=== PATIENT | female | born 1985 | race Caucasian/White ===

== ENCOUNTER 2021-02-17 09:56 | Outpatient (REF) | payer MEDICAID, SELFPAY ==
--- NOTE | 2021-02-17 13:16 | MHC.AU.ANR ---
Adult Audiological Evaluation Date of Visit: 02/17/21 Reason for Appointment: Audiological evaluation due to concern for decreased hearing. Ms. Carbone notes that she has had fluctuating hearing difficulties over the past ten years. She has had an audiological evaluation in the past and reports seeing an ENT physician in [place] and an pick up man. Ms. Carbone reports that she was told that her hearing difficulties were caused by allergies. She notes that her hearing seems worse during allergy seasons, in the spring and fall. She states that she has been treated with allergy shots, but feels it hasn't helped improve her hearing at all. She notes that her right ear is worse and has to direct people to talk to her from the left. She notes that her family gets frustrated when she doesn't hear well and she often has to ask for repetition. 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 Does patient feel they have a hearing loss?: Yes If Yes, Which Ear?: Right Ear When Was Hearing Difficulty First Noticed?: ~10 years ago Has hearing been tested previously?: Yes Previous Hearing Test Results: States that she was tested ~2 years ago at [facility]. Results not available for review today. Hearing Handicap Inventory: HHIE SCORE: 26 Based on HHIE score, patient has: Severe perceived hearing handicap Ear History: Recent Ear Pain: Right Ear Ear Infections in Childhood: Both Ears Bothersome Tinnitus/Ringing/Noises in Ears: Both Ears Medical History: Medical History: Dizziness or Unsteadiness Medical History (Other): Seasonal allergies, allergy shots Otoscopy: Right Ear: Unremarkable Left Ear: Unremarkable Tympanometry: Tympanometry performed due to: History of middle ear dysfunction Right Ear: Negative Middle Ear Pressure (Type C), Reduced Middle Ear Compliance (Type As) Left Ear: Negative Middle Ear Pressure (Type C), Reduced Middle Ear Compliance (Type As) Hearing Evaluation: Transducer(s) Used: Insert Earphones, Bone Conduction Method: Conventional Audiometry Stimuli Used: Pure Tones Right Ear: Description of Hearing: Mild conductive hearing loss 250-500 Hz, rising to normal hearing from 5234-0900 Hz with some underlying conductive components. Air-bone gaps of 40 dBHL at 250 and 500 Hz, 25 dBHL at 1000 Hz, and 20 dBHL at 4000 Hz. Possible Carhart's notch at 2000 Hz. Left Ear: Description of Hearing: Normal hearing from 250-8000 Hz with some underlying conductive components. Air-bone gaps of 25 dBHL at 250 and 500 Hz, 15 dBHL at 1000 Hz, and 20 dBHL at 4000 Hz. Possible Carhart's notch at 2000 Hz. Speech Recognition Threshold (SRT): Method Used: Monitored Live Voice Stimuli Used: Spondee Words Right Ear: 20 dBHL Left Ear: 15 dBHL Word Discrimination: Method: Recorded Lists Word Lists Used: NU-6 Right Ear: 96% at 60 dBHL Left Ear: 96% at 55 dBHL Recommendations: Referral to Ear, Nose, and Throat is recommended given conductive hearing loss, middle-ear dysfunction, and patient's report of perceived severe communication difficulties related to her hearing loss. Hearing re-evaluation recommended in six months. 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
== END 2021-02-17 09:57 | disposition home or self-care (01) ==
LOC: HO.SH 09:56
PROVIDERS: Visit Provider Family Medicine
DX: H90.11 Conductive hearing loss, unilateral, right ear, with unrestricted hearing on the contralateral side (principal); H69.93 Unspecified Eustachian tube disorder, bilateral
CPT/HCPCS: 92557; 92567

== ENCOUNTER 2022-10-04 13:16 | Emergency (ER) | payer MEDICAID, SELFPAY ==
--- NOTE | ~2022-10-04 | XR_ITS ---
EXAMINATION: XR CHEST CLINICAL INFORMATION: Chest pain COMPARISON: 09/12/2017 TECHNIQUE: Frontal view of the chest was obtained. FINDINGS: Lungs clear. Heart and pulmonary vessels are normal. XR/XR chest 1V IMPRESSION: No active disease.
--- NOTE | 2022-10-04 13:17 | ECG_ITS ---
Test Reason : sob Blood Pressure : / mmHG Vent. Rate : 063 BPM Atrial Rate : 063 BPM P-R Int : 134 ms QRS Dur : 086 ms QT Int : 376 ms P-R-T Axes : 029 033 031 degrees QTc Int : 384 ms Normal sinus rhythm Normal ECG When compared with ECG of 12-SEP-2017 13:22, No significant change was found Referred By: Shanita Wayne Electronically Signed By:Ken Dos Santos
[2022-10-04 13:32] VITALS: BP 138/69; PULSE 66; RESP 16; TEMP 36.8; O2SAT 99; BMI 34.9
--- NOTE | 2022-10-04 13:32 | ED_ITS ---
HPI - Chest Pain General Chief Complaint: Chest Pain <QUIANA Mercado - Last Filed: 10/04/22 13:36> Stated Complaint: Chest pain <QUIANA Mercado - Last Filed: 10/04/22 13:36> Time Seen by Provider: 10/04/22 15:12 <QUIANA Mercado - Last Filed: 10/04/22 13:36> Source: patient <Bianca Ruby MD - Last Filed: 10/04/22 17:16> Mode of arrival: ambulatory <Bianca Ruby MD - Last Filed: 10/04/22 17:16> Limitations: no limitations <Bianca Ruby MD - Last Filed: 10/04/22 17:16> History of Present Illness HPI narrative: 37-year-old female presented with multiple complain. Chest pain for the past few weeks pain is localized to the left side of the sternum with no radiation symptoms associated with bilateral hand numbness, P last usually for about 5 minutes goes away if the patient try to move around and forget about it, pain is not exertional can start during rest or taking a deep breath, increased pain to touch to the area. Pain is 5/10, now patient has no pain, no SOB, no fever, no chills, no recent travel, no prolonged immobilization, no lower extremities swelling or tenderness, patient lost about 120 lb intentionally over a year by eating healthy and exercising. Syncopal episode patient has been evaluated by her PCP for syncopal episode and found to have withdrawal hypotension that causing patient's symptoms. Patient also with chronic headache and migraine complaining of migraine for the past few days the headache is similar to her previous headache, no photophobia, no neck stiffness, no nausea or vomiting. <Bianca Ruby MD - Last Filed: 10/04/22 17:16> Related Data Allergies/Adverse Reactions: Allergies Allergy/AdvReac Type Severity Reaction Status Date / Time Penicillins [PENICILLINS] Allergy Unknown HIVES Unverified 04/08/20 17:10 <QUIANA Mercado - Last Filed: 10/04/22 13:36> Review of Systems Review of Systems: All other systems are reviewed and are negative Constitutional: Reports as per HPI and Reports no additional constitutional complaints Eyes: Reports as per HPI and Reports no additional eye complaints Reports system reviewed and no additional complaints, except as documented Cardiovascular: Reports as per HPI and Reports no additional cardiovascular complaints Respiratory: Reports as per HPI and Reports no additional respiratory complaints Gastrointestinal: Reports as per HPI and Reports no additional gastrointestinal complaints Genitourinary: Reports no additional female genitourinary complaints Musculoskeletal: Reports no additional musculoskeletal complaints Skin/Breast: Reports system reviewed and no additional complaints, except as docu Psychiatric: Reports no additional psychiatric complaints Endocrine: Reports no additional endocrine complaints Hematologic/Lymphatic: Reports no additional hematologic/lymphatic complaints Allergic/Immunologic: Reports no additional allergic/immunologic complaints Reports system reviewed and no additional complaints, except as documented and Reports Abnormal speech present <Bianca Ruby MD - Last Filed: 10/04/22 17:16> [facility] Social History Social History: Social History Advance Directives: No Advance Directives Information Provided: Yes <QUIANA Mercado - Last Filed: 10/04/22 13:36> Physical Exam Vital Signs: Vital Signs: Last Vital Signs Temp 98.2 F 10/04/22 13:32 Pulse 66 10/04/22 13:32 Resp 16 10/04/22 13:32 BP 138/69 10/04/22 13:32 Pulse Ox 99 10/04/22 13:32 O2 Del Method 10/04/22 13:32 BMI result Body Mass Index 34.9 <QUIANA Mercado - Last Filed: 10/04/22 13:36> Vital Signs: Last Vital Signs Temp 98.2 F 10/04/22 13:32 Pulse 66 10/04/22 13:32 Resp 16 10/04/22 13:32 BP 138/69 10/04/22 13:32 Pulse Ox 99 10/04/22 13:32 O2 Del Method 10/04/22 13:32 BMI result Body Mass Index 34.9 Vital signs have been reviewed as appeared to be correct. Blood pressure normal. Heart rate normal. Respiration rate normal. Temperature normal. Oxygen saturation normal. <Bianca Ruby MD - Last Filed: 10/04/22 17:16> Appearance: Alert. Oriented X3. No acute distress. Head: Normal external exam. Normocephalic. Atraumatic. No Cronin signs noted. No raccoon eyes noted Eyes: PERRLA. EOMI. Conjunctiva and sclera normal. Eyelids normal. ENT: TM's Normal. Pharynx normal. Uvula midline. Moist mucous membranes. No trismus noted. No drooling noted. No muffled voice noted. Neck: Normal inspection. Neck supple. FROM. No adenopathy. Thyroid Normal. No meningeal signs. No neck mass noted. CVS: Normal heart rate and rhythm. Heart sound normal. No murmurs noted. Pulses normal throughout. Respiratory: No respiratory distress. Painless inspiration. Breath sounds normal. No wheezes/rales/rhonchi noted. Point of reproducible tenderness around the lower part and to the left border of the sternum. No accessory muscle usage noted or decreased air movement noted. Abdomen: Soft and nontender. Bowel sounds normal in all 4 quadrants. No distention noted. No organomegaly noted. No visible injury noted. Back: No CVA tenderness. Full range of motion noted. Skin: Skin warm and dry. Normal skin color. Normal skin turgor. No rashes/lesions/lacerations noted. Extremities: No lower extremity edema. Extremities exhibit normal range of motion. Extremities nontender. Neuro: Oriented X 3. Cranial nerve exam: II-XII are grossly intact No motor deficit. No sensory deficit. Reflexes normal. <Bianca Ruby MD - Last Filed: 10/04/22 17:16> Course Course Course Narrative: RME-- 37yo F w/no sig PMHx c/o intermittent CP, migraine HAQ's, and lightheadedness x1 week. Also reports syncopal episode 2 days ago, denies head trauma/injury. Admits has been syncopizing x mos, seeing her doctor for w/u. +SOB Denies OCPs, smoking, travel Patient in wheelchair in triage due to feeling lightheaded Vital signs stable. EKG, labs including D-dimer, orthostatics ordered <QUIANA Mercado - Last Filed: 10/04/22 13:36> Medical Decision Making Differential Diagnosis Differential Diagnoses: The differential diagnosis associated with the presentation includes (ACS, PE, pneumonia, pneumothorax, myofascial chest pain, costochondritis.) <Bianca Ruby MD - Last Filed: 10/04/22 17:16> Lab Data [facility] Lab Attestation statement: I reviewed the patient's lab results. <Bianca Ruby MD - Last Filed: 0 10/04/22 17:16> Result Diagrams: 10/04/22 15:41 10/04/22 15:41 <QUIANA Mercado - Last Filed: 10/04/22 13:36> Labs: Lab Results 10/04/22 10/04/22 10/04/22 Range/Units 15:41 15:41 15:41 WBC 12.7 H (4.8-10.8) X10*3/uL RBC 4.89 (4.20-5.50) X10*6/uL Hgb 14.2 (12.0-16.0) g/dl Hct 42.7 (37.0-47.0) % MCV 87.3 (80.0-98.0) fL MCH 29.0 (27.0-33.0) pg MCHC 33.3 (31.0-35.0) g/dl RDW 12.6 (11.0-16.0) % Plt Count 342 (160-400) X10*3/uL MPV 10.0 (9.4-12.3) fL Immature Gran % (Auto) 0.2 (0.0-0.4) % Neut % (Auto) 65.8 (45-73) % Lymph % (Auto) 24.6 (20-40) % Overton % (Auto) 5.4 (2-11) % Eos % (Auto) 3.8 (0-4) % Baso % (Auto) 0.2 (0-2) % Lymph # (Auto) 3.1 (1.2-4.9) X10*3/uL Overton # (Auto) 0.7 (0.1-1.2) X10*3/uL Eos # (Auto) 0.5 H (0.0-0.4) X10*3/uL Baso # (Auto) 0.0 (0.0-0.2) X10*3/uL Abs Immat Gran (auto) 0.02 (0.00-0.03) X10*3/uL Absolute Neuts (auto) 8.4 H (2.0-8.3) x10*3/uL Absolute Nucleated RBC 0.000 (0.0-0.012) X10*3/uL Nucleated RBC % (auto) 0.0 (0.0-0.2) /100WBC PT 10.4 (10.0-13.1) SEC INR 0.9 (0.9-1.1) D-Dimer High Sensitivty < 150 NG/ML Sodium 139 (135-145) mmol/L Potassium 4.3 (3.3-5.1) mmol/L Chloride 105 (96-108) mmol/L Carbon Dioxide 23 (22-29) mmol/L Anion Gap 15 (12-20) BUN 10 (9-16) mg/dL Creatinine 0.79 (0.5-1.4) mg/dL Estim Creat Clear Calc 124.4 Estimated GFR > 60 Random Glucose 89 (60-115) mg/dL Calcium 9.0 (8.4-10.2) mg/dL Magnesium 2.0 (1.6-2.6) mg/dL Total Bilirubin 0.2 (0.0-1.0) mg/dL Direct Bilirubin < 0.2 (0.0-0.5) mg/dL AST 16 (5-31) U/L ALT 12 (0-31) U/L Alkaline Phosphatase 78 (39-117) U/L Troponin I High Sens (<3.5-17.0) ng/L B-Natriuretic Peptide (<100) pg/mL Total Protein 6.8 (6.5-8.0) g/dL Albumin 3.5 (3.5-5.0) g/dL COVID-19 (DORA) (Negative) COVID-19 Clin Com Influenza Type A (SILVANA) (Negative) Influenza Type B (SILVANA) (Negative) Influenza A & B Note 10/04/22 10/04/22 10/04/22 Range/Units 15:41 15:41 15:41 WBC (4.8-10.8) X10*3/uL RBC (4.20-5.50) X10*6/uL Hgb (12.0-16.0) g/dl Hct (37.0-47.0) % MCV (80.0-98.0) fL MCH (27.0-33.0) pg MCHC (31.0-35.0) g/dl RDW (11.0-16.0) % Plt Count (160-400) X10*3/uL MPV (9.4-12.3) fL Immature Gran % (Auto) (0.0-0.4) % Neut % (Auto) (45-73) % Lymph % (Auto) (20-40) % Overton % (Auto) (2-11) % Eos % (Auto) (0-4) % Baso % (Auto) (0-2) % Lymph # (Auto) (1.2-4.9) X10*3/uL Overton # (Auto) (0.1-1.2) X10*3/uL Eos # (Auto) (0.0-0.4) X10*3/uL Baso # (Auto) (0.0-0.2) X10*3/uL Abs Immat Gran (auto) (0.00-0.03) X10*3/uL Absolute Neuts (auto) (2.0-8.3) x10*3/uL Absolute Nucleated RBC (0.0-0.012) X10*3/uL Nucleated RBC % (auto) (0.0-0.2) /100WBC PT (10.0-13.1) SEC INR (0.9-1.1) D-Dimer High Sensitivty NG/ML Sodium (135-145) mmol/L Potassium (3.3-5.1) mmol/L Chloride (96-108) mmol/L Carbon Dioxide (22-29) mmol/L Anion Gap (12-20) BUN (9-16) mg/dL Creatinine (0.5-1.4) mg/dL Estim Creat Clear Calc Estimated GFR Random Glucose (60-115) mg/dL Calcium (8.4-10.2) mg/dL Magnesium (1.6-2.6) mg/dL Total Bilirubin (0.0-1.0) mg/dL Direct Bilirubin (0.0-0.5) mg/dL AST (5-31) U/L ALT (0-31) U/L Alkaline Phosphatase (39-117) U/L Troponin I High Sens < 3.5 (<3.5-17.0) ng/L B-Natriuretic Peptide < 10 (<100) pg/mL Total Protein (6.5-8.0) g/dL Albumin (3.5-5.0) g/dL COVID-19 (DORA) (Negative) COVID-19 Clin Com Influenza Type A (SILVANA) Negative (Negative) Influenza Type B (SILVANA) Negative (Negative) Influenza A & B Note See Note 10/04/22 Range/Units 15:41 WBC (4.8-10.8) X10*3/uL RBC (4.20-5.50) X10*6/uL Hgb (12.0-16.0) g/dl Hct (37.0-47.0) % MCV (80.0-98.0) fL MCH (27.0-33.0) pg MCHC (31.0-35.0) g/dl RDW (11.0-16.0) % Plt Count (160-400) X10*3/uL MPV (9.4-12.3) fL Immature Gran % (Auto) (0.0-0.4) % Neut % (Auto) (45-73) % Lymph % (Auto) (20-40) % Overton % (Auto) (2-11) % Eos % (Auto) (0-4) % Baso % (Auto) (0-2) % Lymph # (Auto) (1.2-4.9) X10*3/uL Overton # (Auto) (0.1-1.2) X10*3/uL Eos # (Auto) (0.0-0.4) X10*3/uL Baso # (Auto) (0.0-0.2) X10*3/uL Abs Immat Gran (auto) (0.00-0.03) X10*3/uL Absolute Neuts (auto) (2.0-8.3) x10*3/uL Absolute Nucleated RBC (0.0-0.012) X10*3/uL Nucleated RBC % (auto) (0.0-0.2) /100WBC PT (10.0-13.1) SEC INR (0.9-1.1) D-Dimer High Sensitivty NG/ML Sodium (135-145) mmol/L Potassium (3.3-5.1) mmol/L Chloride (96-108) mmol/L Carbon Dioxide (22-29) mmol/L Anion Gap (12-20) BUN (9-16) mg/dL Creatinine (0.5-1.4) mg/dL Estim Creat Clear Calc Estimated GFR Random Glucose (60-115) mg/dL Calcium (8.4-10.2) mg/dL Magnesium (1.6-2.6) mg/dL Total Bilirubin (0.0-1.0) mg/dL Direct Bilirubin (0.0-0.5) mg/dL AST (5-31) U/L ALT (0-31) U/L Alkaline Phosphatase (39-117) U/L Troponin I High Sens (<3.5-17.0) ng/L B-Natriuretic Peptide (<100) pg/mL Total Protein (6.5-8.0) g/dL Albumin (3.5-5.0) g/dL COVID-19 (DORA) Negative (Negative) COVID-19 Clin Com See Note Influenza Type A (SILVANA) (Negative) Influenza Type B (SILVANA) (Negative) Influenza A & B Note <QUIANA Mercado - Last Filed: 10/04/22 13:36> Lab Results 10/04/22 10/04/22 10/04/22 Range/Units 15:41 15:41 15:41 WBC 12.7 H (4.8-10.8) X10*3/uL RBC 4.89 (4.20-5.50) X10*6/uL Hgb 14.2 (12.0-16.0) g/dl Hct 42.7 (37.0-47.0) % MCV 87.3 (80.0-98.0) fL MCH 29.0 (27.0-33.0) pg MCHC 33.3 (31.0-35.0) g/dl RDW 12.6 (11.0-16.0) % Plt Count 342 (160-400) X10*3/uL MPV 10.0 (9.4-12.3) fL Immature Gran % (Auto) 0.2 (0.0-0.4) % Neut % (Auto) 65.8 (45-73) % Lymph % (Auto) 24.6 (20-40) % Overton % (Auto) 5.4 (2-11) % Eos % (Auto) 3.8 (0-4) % Baso % (Auto) 0.2 (0-2) % Lymph # (Auto) 3.1 (1.2-4.9) X10*3/uL Overton # (Auto) 0.7 (0.1-1.2) X10*3/uL Eos # (Auto) 0.5 H (0.0-0.4) X10*3/uL Baso # (Auto) 0.0 (0.0-0.2) X10*3/uL Abs Immat Gran (auto) 0.02 (0.00-0.03) X10*3/uL Absolute Neuts (auto) 8.4 H (2.0-8.3) x10*3/uL Absolute Nucleated RBC 0.000 (0.0-0.012) X10*3/uL Nucleated RBC % (auto) 0.0 (0.0-0.2) /100WBC PT 10.4 (10.0-13.1) SEC INR 0.9 (0.9-1.1) D-Dimer High Sensitivty < 150 NG/ML Sodium 139 (135-145) mmol/L Potassium 4.3 (3.3-5.1) mmol/L Chloride 105 (96-108) mmol/L Carbon Dioxide 23 (22-29) mmol/L Anion Gap 15 (12-20) BUN 10 (9-16) mg/dL Creatinine 0.79 (0.5-1.4) mg/dL Estim Creat Clear Calc 124.4 Estimated GFR > 60 Random Glucose 89 (60-115) mg/dL Calcium 9.0 (8.4-10.2) mg/dL Magnesium 2.0 (1.6-2.6) mg/dL Total Bilirubin 0.2 (0.0-1.0) mg/dL Direct Bilirubin < 0.2 (0.0-0.5) mg/dL AST 16 (5-31) U/L ALT 12 (0-31) U/L Alkaline Phosphatase 78 (39-117) U/L Troponin I High Sens (<3.5-17.0) ng/L B-Natriuretic Peptide (<100) pg/mL Total Protein 6.8 (6.5-8.0) g/dL Albumin 3.5 (3.5-5.0) g/dL COVID-19 (DORA) (Negative) COVID-19 Clin Com Influenza Type A (SILVANA) (Negative) Influenza Type B (SILVANA) (Negative) Influenza A & B Note 10/04/22 10/04/22 10/04/22 Range/Units 15:41 15:41 15:41 WBC (4.8-10.8) X10*3/uL RBC (4.20-5.50) X10*6/uL Hgb (12.0-16.0) g/dl Hct (37.0-47.0) % MCV (80.0-98.0) fL MCH (27.0-33.0) pg MCHC (31.0-35.0) g/dl RDW (11.0-16.0) % Plt Count (160-400) X10*3/uL MPV (9.4-12.3) fL Immature Gran % (Auto) (0.0-0.4) % Neut % (Auto) (45-73) % Lymph % (Auto) (20-40) % Overton % (Auto) (2-11) % Eos % (Auto) (0-4) % Baso % (Auto) (0-2) % Lymph # (Auto) (1.2-4.9) X10*3/uL Overton # (Auto) (0.1-1.2) X10*3/uL Eos # (Auto) (0.0-0.4) X10*3/uL Baso # (Auto) (0.0-0.2) X10*3/uL Abs Immat Gran (auto) (0.00-0.03) X10*3/uL Absolute Neuts (auto) (2.0-8.3) x10*3/uL Absolute Nucleated RBC (0.0-0.012) X10*3/uL Nucleated RBC % (auto) (0.0-0.2) /100WBC PT (10.0-13.1) SEC INR (0.9-1.1) D-Dimer High Sensitivty NG/ML Sodium (135-145) mmol/L Potassium (3.3-5.1) mmol/L Chloride (96-108) mmol/L Carbon Dioxide (22-29) mmol/L Anion Gap (12-20) BUN (9-16) mg/dL Creatinine (0.5-1.4) mg/dL Estim Creat Clear Calc Estimated GFR Random Glucose (60-115) mg/dL Calcium (8.4-10.2) mg/dL Magnesium (1.6-2.6) mg/dL Total Bilirubin (0.0-1.0) mg/dL Direct Bilirubin (0.0-0.5) mg/dL AST (5-31) U/L ALT (0-31) U/L Alkaline Phosphatase (39-117) U/L Troponin I High Sens < 3.5 (<3.5-17.0) ng/L B-Natriuretic Peptide < 10 (<100) pg/mL Total Protein (6.5-8.0) g/dL Albumin (3.5-5.0) g/dL COVID-19 (DORA) (Negative) COVID-19 Clin Com Influenza Type A (SILVANA) Negative (Negative) Influenza Type B (SILVANA) Negative (Negative) Influenza A & B Note See Note 10/04/22 Range/Units 15:41 WBC (4.8-10.8) X10*3/uL RBC (4.20-5.50) X10*6/uL Hgb (12.0-16.0) g/dl Hct (37.0-47.0) % MCV (80.0-98.0) fL MCH (27.0-33.0) pg MCHC (31.0-35.0) g/dl RDW (11.0-16.0) % Plt Count (160-400) X10*3/uL MPV (9.4-12.3) fL Immature Gran % (Auto) (0.0-0.4) % Neut % (Auto) (45-73) % Lymph % (Auto) (20-40) % Overton % (Auto) (2-11) % Eos % (Auto) (0-4) % Baso % (Auto) (0-2) % Lymph # (Auto) (1.2-4.9) X10*3/uL Overton # (Auto) (0.1-1.2) X10*3/uL Eos # (Auto) (0.0-0.4) X10*3/uL Baso # (Auto) (0.0-0.2) X10*3/uL Abs Immat Gran (auto) (0.00-0.03) X10*3/uL Absolute Neuts (auto) (2.0-8.3) x10*3/uL Absolute Nucleated RBC (0.0-0.012) X10*3/uL Nucleated RBC % (auto) (0.0-0.2) /100WBC PT (10.0-13.1) SEC INR (0.9-1.1) D-Dimer High Sensitivty NG/ML Sodium (135-145) mmol/L Potassium (3.3-5.1) mmol/L Chloride (96-108) mmol/L Carbon Dioxide (22-29) mmol/L Anion Gap (12-20) BUN (9-16) mg/dL Creatinine (0.5-1.4) mg/dL Estim Creat Clear Calc Estimated GFR Random Glucose (60-115) mg/dL Calcium (8.4-10.2) mg/dL Magnesium (1.6-2.6) mg/dL Total Bilirubin (0.0-1.0) mg/dL Direct Bilirubin (0.0-0.5) mg/dL AST (5-31) U/L ALT (0-31) U/L Alkaline Phosphatase (39-117) U/L Troponin I High Sens (<3.5-17.0) ng/L B-Natriuretic Peptide (<100) pg/mL Total Protein (6.5-8.0) g/dL Albumin (3.5-5.0) g/dL COVID-19 (DORA) Negative (Negative) COVID-19 Clin Com See Note Influenza Type A (SILVANA) (Negative) Influenza Type B (SILVANA) (Negative) Influenza A & B Note <Bianca Ruby MD - Last Filed: 10/04/22 17:16> Independent Interpretation I performed an independent interpretation of an: EKG (Normal sinus rhythm at 63 beats per minute, normal axis deviation, normal intervals, no ST-T changes.) and Plain X-Ray (Chest: No acute intrath oracic pathology.) <Bianca Ruby MD - Last Filed: 10/04/22 17:16> Radiology Impression Discussion of test interpretation with radiology: I have reviewed the radiologist's reading. <Bianca Ruby MD - Last Filed: 10/04/22 17:16> Discharge Plan Discharge Clinical Impression: Atypical chest pain, Costalchondritis <QUIANA Mercado - Last Filed: 10/04/22 13:36> Patient Disposition: Home, Self-Care <QUIANA Mercado - Last Filed: 10/04/22 13:36> Instructions: Costochondritis (ED) <QUIANA Mercado - Last Filed: 10/04/22 13:36> Additional Instructions: Take [id number] ibuprofen 200 mg tablet every 6 hours if needed for pain, apply heating pads to the tender area. <QUIANA Mercado - Last Filed: 10/04/22 13:36> Referrals: Nancie Gonzales MD [Primary Care Provider] - <QUIANA Mrecado - Last Filed: 10/04/22 13:36>
[2022-10-04 15:46] LABS: MANUAL DIFF FLAG NO
[2022-10-04 15:48] LABS: Basophils Percent Auto 0.2 % (0-2); Eosinophils Absolute Auto 0.5 X10*3/uL (0.0-0.4); Eosinophils Percent Auto 3.8 % (0-4); Hematocrit 42.7 % (37.0-47.0); Hemoglobin 14.2 g/dl (12.0-16.0); Imm Gran Abs Auto 0.02 X10*3/uL (0.00-0.03); Imm Gran Pct Auto 0.2 % (0.0-0.4); Lymphocytes Absolute Auto 3.1 X10*3/uL (1.2-4.9); Lymphocytes Percent Auto 24.6 % (20-40); Mean Corpuscular HGB Conc 33.3 g/dl (31.0-35.0); Mean Corpuscular Volume 87.3 fL (80.0-98.0); Monocytes Absolute Auto 0.7 X10*3/uL (0.1-1.2); Monocytes Percent Auto 5.4 % (2-11); Neutrophils Absolute Auto 8.4 x10*3/uL (2.0-8.3); Neutrophils Percent Auto 65.8 % (45-73); Platelet Count 342 X10*3/uL (160-400); Red Blood Count 4.89 X10*6/uL (4.20-5.50); Red Cell Distribution Width 12.6 % (11.0-16.0); White Blood Count 12.7 X10*3/uL (4.8-10.8)
[2022-10-04 15:53] LABS: INTERNATIONAL NORM RATIO 0.9 (0.9-1.1); Prothrombin Time 10.4 SEC (10.0-13.1)
[2022-10-04 15:56] LABS: D Dimer High Sensitivity < 150 NG/ML
[2022-10-04 16:04] LABS: Alanine Aminotransferase 12 U/L (0-31); Albumin Level 3.5 g/dL (3.5-5.0); Alkaline Phosphatase 78 U/L (39-117); Anion Gap 15 (12-20); Aspartate Amino Transferase 16 U/L (5-31); Bilirubin Direct < 0.2 mg/dL (0.0-0.5); Bilirubin Total 0.2 mg/dL (0.0-1.0); Blood Urea Nitrogen 10 mg/dL (9-16); Carbon Dioxide 23 mmol/L (22-29); Chloride 105 mmol/L (96-108); Creatinine Clr Calc Pharmacy 124.4; Estimated Glomerular Filt Rate > 60; Glucose Random 89 mg/dL (60-115); Potassium 4.3 mmol/L (3.3-5.1); Sodium 139 mmol/L (135-145); Total Protein 6.8 g/dL (6.5-8.0)
[2022-10-04 16:09] LABS: B Type Natriuretic Peptide < 10 pg/mL (<100)
[2022-10-04 16:11] LABS: Troponin-I High Sensitivity < 3.5 ng/L (<3.5-17.0)
[2022-10-04 16:13] LABS: IDNOW Serial# 55D5AD1C; Influenza A Negative (Negative); Influenza B2 Negative (Negative)
[2022-10-04 16:18] LABS: IDNOW Serial# 6674DD1D
[2022-10-04 16:19] LABS: COVID-19 Test Negative (Negative)
[2022-10-04 17:27] VITALS: BP 122/60; PULSE 56; RESP 16; TEMP 36.9; O2SAT 97
[2022-10-04 17:29] VITALS: BP 127/73; BP 128/68; PULSE 67; PULSE 73
== END 2022-10-04 17:40 | disposition home or self-care (01) ==
PROVIDERS: Physician Assistant; Emergency Provider Emergency Medicine; PCP Family Medicine
DX: R07.89 Other chest pain (principal); R06.02 Shortness of breath; M94.0 Chondrocostal junction syndrome [Tietze]; Z20.822 Contact with and (suspected) exposure to COVID-19; Z20.828 Contact with and (suspected) exposure to other viral communicable diseases; Z79.899 Other long term (current) drug therapy
CPT/HCPCS: 36415; 71045; 80048; 80076; 83735; 83880; 84484; 85025; 85379; 85610; 87502; 87635; 93005; 99283; 99284

== ENCOUNTER 2023-01-22 13:18 | Observation (INO) | payer MEDICAID, SELFPAY ==
[2023-01-22 13:26] VITALS: BP 116/78; PULSE 62; O2SAT 98
[2023-01-22 13:43] VITALS: BP 139/72; PULSE 66; RESP 18; TEMP 36.3; O2SAT 97; BMI 29.5
--- NOTE | 2023-01-22 13:56 | ED.GENADULT ---
HPI - General Adult General Chief complaint: Syncope Stated complaint: NOT FEELING WELL PER EMS Time Seen by Provider: 01/22/23 16:51 History of Present Illness HPI narrative: Seen by Dr. Pina Related Data Home Medications Medication Instructions Recorded Confirmed albuterol sulfate 90 mcg/actuation 2 puff inhalation Q4H PRN Dyspnea 01/22/23 01/22/23 aerosol inhaler (Proventil HFA) budesonide-formoterol HFA 80 2 puff inhalation BID 01/22/23 01/22/23 mcg-4.5 mcg/actuation aerosol inhaler (Symbicort) cholecalciferol (vitamin D3) 25 25 mcg PO DAILY 01/22/23 01/22/23 mcg (1,000 unit) capsule (Vitamin D3) loratadine 10 mg tablet (Allergy 10 mg PO DAILY allergies 01/22/23 01/22/23 Relief (loratadine)) sertraline 50 mg tablet 50 mg PO DAILY 01/22/23 01/22/23 Previous Rx's Medication Instructions Recorded levofloxacin 250 mg tablet 250 mg PO Q24H #2 tabs 01/23/23 Allergies Allergy/AdvReac Type Severity Reaction Status Date / Time Penicillins [PENICILLINS] Allergy Unknown HIVES Verified 01/22/23 19:29 [facility] Past Medical History Medical History Mild intermittent asthma Mood disorder Social History Social History Patient Tobacco Use Status: Never used Tobacco Substance Use Type: Marijuana service: No Physical Exam ED Vital Signs: Vital Signs - 24 hr 01/22/23 13:43 Temperature 97.4 F Pulse Rate 66 Respiratory Rate 18 Blood Pressure 139/72 Pulse Oximetry 97 Oxygen Delivery Method Room Air BMI result Body Mass Index 29.5 Course Course Course Narrative: RmE: 37 yold female presents to the ED for syncopal episode and hitting her head. patient states unwitneesed. labs, imagine, and head CT , ekg ordered Medications Administered Discontinued Medications Generic Name Dose Route Start Last Admin Trade Name Freq PRN Reason Stop Dose Admin Enoxaparin Sodium 40 mg 01/22/23 20:00 01/22/23 19:50 Enoxaparin Sodium 40 Mg/0.4 Ml Syringe SUBCUT Not Given Q24H [facility] Fluticasone/Vilanterol 1 puff 01/23/23 08:00 01/23/23 07:53 Fluticasone/Vilanterol 100/25 Blst.W.Dev INHALE 1 puff RDAILY [facility] Administration Levofloxacin 250 mg 01/23/23 07:30 01/23/23 09:41 Levofloxacin 250 Mg Tablet PO 250 mg Q24H MAGDA Administration Loratadine 10 mg 01/23/23 09:00 01/23/23 09:42 Loratadine 10 Mg Tablet PO 10 mg DAILY MAGDA Administration Sertraline HCl 50 mg 01/23/23 09:00 01/23/23 09:42 Sertraline Hcl 50 Mg Tablet PO 50 mg DAILY [facility] Administration Sodium Chloride 3 ml 01/23/23 00:00 01/23/23 09:43 0.9 % Sodium Chloride Flush 3 Ml Syringe IVFLUSH 3 ml QSHIFT [facility] Administration Vitamin D 25 mcg 01/23/23 09:00 01/23/23 09:42 Cholecalciferol (Vitamin D3) 25 Mcg Tablet PO 25 mcg DAILY MAGDA Administration Medical Decision Making Lab Data 01/23/23 06:12 01/23/23 06:12 Labs: Lab Results 01/22/23 01/22/23 01/22/23 Range/Units 14:00 14:00 17:38 WBC 9.6 (4.8-10.8) X10*3/uL RBC 5.14 (4.20-5.50) X10*6/uL Hgb 14.9 (12.0-16.0) g/dl Hct 44.7 (37.0-47.0) % MCV 87.0 (80.0-98.0) fL MCH 29.0 (27.0-33.0) pg MCHC 33.3 (31.0-35.0) g/dl RDW 12.7 (11.0-16.0) % Plt Count 342 (160-400) X10*3/uL MPV 10.1 (9.4-12.3) fL Immature Gran % (Auto) 0.3 (0.0-0.4) % Neut % (Auto) 66.9 (45-73) % Lymph % (Auto) 22.6 (20-40) % [place] % (Auto) 5.6 (2-11) % Eos % (Auto) 4.2 H (0-4) % Baso % (Auto) 0.4 (0-2) % Lymph # (Auto) 2.2 (1.2-4.9) X10*3/uL [place] # (Auto) 0.5 (0.1-1.2) X10*3/uL Eos # (Auto) 0.4 (0.0-0.4) X10*3/uL Baso # (Auto) 0.0 (0.0-0.2) X10*3/uL Abs Immat Gran (auto) 0.03 (0.00-0.03) X10*3/uL Absolute Neuts (auto) 6.4 (2.0-8.3) x10*3/uL Absolute Nucleated RBC 0.000 (0.0-0.012) X10*3/uL Nucleated RBC % (auto) 0.0 (0.0-0.2) /100WBC Sodium 140 (135-145) mmol/L Potassium 4.4 (3.3-5.1) mmol/L Chloride 108 (96-108) mmol/L Carbon Dioxide 25 (22-29) mmol/L Anion Gap 11 L (12-20) BUN 12 (9-16) mg/dL Creatinine 0.86 (0.5-1.4) mg/dL Estim Creat Clear Calc 108.5 Estimated GFR > 60 Random Glucose 107 (60-115) mg/dL Calcium 9.6 D (8.4-10.2) mg/dL Total Bilirubin 0.5 (0.0-1.0) mg/dL AST 16 (5-31) U/L ALT 12 (0-31) U/L Alkaline Phosphatase 73 (39-117) U/L Troponin I High Sens < 2.7 (<3.5-17.0) ng/L Total Protein 7.4 (6.5-8.0) g/dL Albumin 3.5 (3.5-5.0) g/dL Beta HCG, Quant mIU/mL Urine Color Urine Appearance Urine pH (5.0-9.0) Ur Specific [place] (1.005-1.025) Urine Protein (Neg-Trace) mg/dL Urine Glucose (UA) (Negative) mg/dL Urine Ketones (Negative) mg/dL Urine Blood (Negative) Urine Nitrite (Negative) Ur Leukocyte Esterase (Negative) Urine RBC (0-2) /HPF Urine WBC (0-5) /HPF Ur Squamous Epith Cells (0-2) /HPF Urine Bacteria (None Seen) Hyaline Casts (0-2) /LPF 01/22/23 01/22/23 Range/Units 17:38 18:53 WBC (4.8-10.8) X10*3/uL RBC (4.20-5.50) X10*6/uL Hgb (12.0-16.0) g/dl Hct (37.0-47.0) % MCV (80.0-98.0) fL MCH (27.0-33.0) pg MCHC (31.0-35.0) g/dl RDW (11.0-16.0) % Plt Count (160-400) X10*3/uL MPV (9.4-12.3) fL Immature Gran % (Auto) (0.0-0.4) % Neut % (Auto) (45-73) % Lymph % (Auto) (20-40) % [place] % (Auto) (2-11) % Eos % (Auto) (0-4) % Baso % (Auto) (0-2) % Lymph # (Auto) (1.2-4.9) X10*3/uL [place] # (Auto) (0.1-1.2) X10*3/uL Eos # (Auto) (0.0-0.4) X10*3/uL Baso # (Auto) (0.0-0.2) X10*3/uL Abs Immat Gran (auto) (0.00-0.03) X10*3/uL Absolute Neuts (auto) (2.0-8.3) x10*3/uL Absolute Nucleated RBC (0.0-0.012) X10*3/uL Nucleated RBC % (auto) (0.0-0.2) /100WBC Sodium (135-145) mmol/L Potassium (3.3-5.1) mmol/L Chloride (96-108) mmol/L Carbon Dioxide (22-29) mmol/L Anion Gap (12-20) BUN (9-16) mg/dL Creatinine (0.5-1.4) mg/dL Estim Creat Clear Calc Estimated GFR Random Glucose (60-115) mg/dL Calcium (8.4-10.2) mg/dL Total Bilirubin (0.0-1.0) mg/dL AST (5-31) U/L ALT (0-31) U/L Alkaline Phosphatase (39-117) U/L Troponin I High Sens (<3.5-17.0) ng/L Total Protein (6.5-8.0) g/dL Albumin (3.5-5.0) g/dL Beta HCG, Quant < 2 mIU/mL Urine Color Yellow Urine Appearance Cloudy Urine pH 6.5 (5.0-9.0) Ur Specific [place] 1.020 (1.005-1.025) Urine Protein Trace (Neg-Trace) mg/dL Urine Glucose (UA) Negative (Negative) mg/dL Urine Ketones Trace (Negative) mg/dL Urine Blood Negative (Negative) Urine Nitrite Negative (Negative) Ur Leukocyte Esterase Large (3+) H (Negative) Urine RBC 0-2 (0-2) /HPF Urine WBC 21-50 H (0-5) /HPF Ur Squamous Epith Cells 3-5 (0-2) /HPF Urine Bacteria 2+ (None Seen) Hyaline Casts 0-2 (0-2) /LPF Discharge Plan Discharge Clinical Impression: Syncope Patient Disposition: Admitted As Inpatient Interventions: Admission Worksheet (ED) Last Done: 01/22/23 21:23 Discharge Date/Time: 01/22/23 21:12
--- NOTE | 2023-01-22 17:31 | ED.SYNCOPE ---
HPI - Syncope General Chief Complaint: Syncope Stated Complaint: NOT FEELING WELL PER EMS Time Seen by Provider: 01/22/23 16:51 History of Present Illness HPI narrative: Patient is a 37-year-old female presents today with having a syncopal episode. Patient reports dizziness. Then had syncope. There is no specific trigger. It happens every so often patient has been having it every month or so. Patient denies any chest pain. Denies any diaphoresis. Denies any heavy menses. Denies any abdominal pain. Denies any recreational drugs. Patient only uses marijuana. No history of smoking. No history of [place]. No history of sudden in the family. No family history of coronary artery disease. S not think she is as she is not sexually active. Related Data Home Medications Medication Instructions Recorded Confirmed albuterol sulfate 90 mcg/actuation 2 puff inhalation Q4H PRN Dyspnea 01/22/23 01/22/23 aerosol inhaler (Proventil HFA) budesonide-formoterol HFA 80 2 puff inhalation 01/22/23 mcg-4.5 mcg/actuation aerosol inhaler (Symbicort) cholecalciferol (vitamin D3) 25 25 mcg PO DAILY 01/22/23 01/22/23 mcg (1,000 unit) capsule (Vitamin D3) loratadine 10 mg tablet (Allergy 10 mg PO DAILY allergies 01/22/23 01/22/23 Relief (loratadine)) sertraline 50 mg tablet 50 mg PO DAILY 01/22/23 01/22/23 Allergies Allergy/AdvReac Type Severity Reaction Status Date / Time Penicillins [PENICILLINS] Allergy Unknown HIVES Verified 01/22/23 19:29 Review of Systems Review of Systems: Positive syncope Yes all other systems are reviewed and are negative [facility] Past Medical History Attestation statement: The following information was validated with the patient. Medical History Mild intermittent asthma Mood disorder Social History Social History Patient Tobacco Use Status: Never used Tobacco Use of substances other than those prescribed or required for medical reasons: Yes Substance Use Type: Marijuana Advance Directives: No Advance Directives Information Provided: Yes Nutrition Risks: No Nutritional Risk Physical Exam Vital Signs: Vital Signs: Last Vital Signs Temp 97.4 F 01/22/23 13:43 Pulse 65 01/22/23 19:08 Resp 18 01/22/23 19:08 BP 140/70 H 01/22/23 19:08 Pulse Ox 98 01/22/23 19:08 O2 Del Method Room Air 01/22/23 13:43 BMI result Body Mass Index 29.5 Appearance: Alert. Oriented X3. No acute distress. Eyes: Pupils equal, round and reactive to light. ENT: Pharynx normal. Neck: Normal inspection. Neck supple. No lymph nodes noted. No crepitus CVS: Normal heart rate and rhythm. Pulses normal. Normal S1 and S2 Respiratory: No respiratory distress. Breath sounds normal. No Wheezing. No rales Abdomen: Soft and nontender. No rigidity. No distention. good BS x4 Skin: Skin warm and dry. Normal skin color. Normal skin turgor. Extremities: No lower extremity edema. Neurovascular intact to all extremities. No Lacerations. No Rash Neuro: Oriented X 3. No motor deficit. No sensory deficit. Moving all extermities. No slurred speech. Cranial nerves 2-12 intact. Rapid alternating movement intact Medical Decision Making Medical Decision Making [facility] Narrative: Patient is a 37-year-old female presents today with having syncopal episode. Patient felt slightly dizzy prior. Patient claims she was having some sweating, question chest pain. Then had a syncopal episode. Does not know what specifically triggers it has been having these episodes on and off. No fever no chills. No focal weakness. Patient is from home. No workup for this dizziness. Patient does not think she is . These from home. No leg swelling. No history of blood clots in the past. Not on control. No history cancer. Given patient's history of having multiple syncopal episode with some shortness of breath and chest pain. Will admit patient for observation. Currently in stable condition. Case discussed with the hospitalist team. CT scan of the head was personally reviewed they are grossly negative. CT scan C-spine is also negative for any acute evidence of fracture malalignment. Differential Diagnosis Syncope, , ACS, arrhythmia, electrolyte disturbance, anemia, intracranial mass Admission/Observation Consideration of admission/observation: Escalation of care including admission/observation considered Consult Healthcare Provider Management of the patient was discussed with: Hospitalist Lab Data MDM Lab Attestation statement: I reviewed the patient's lab results. 01/22/23 14:00 01/22/23 14:00 Labs: Lab Results 01/22/23 01/22/23 01/22/23 Range/Units 14:00 14:00 17:38 WBC 9.6 (4.8-10.8) X10*3/uL RBC 5.14 (4.20-5.50) X10*6/uL Hgb 14.9 (12.0-16.0) g/dl Hct 44.7 (37.0-47.0) % MCV 87.0 (80.0-98.0) fL MCH 29.0 (27.0-33.0) pg MCHC 33.3 (31.0-35.0) g/dl RDW 12.7 (11.0-16.0) % Plt Count 342 (160-400) X10*3/uL MPV 10.1 (9.4-12.3) fL Immature Gran % (Auto) 0.3 (0.0-0.4) % Neut % (Auto) 66.9 (45-73) % Lymph % (Auto) 22.6 (20-40) % [place] % (Auto) 5.6 (2-11) % Eos % (Auto) 4.2 H (0-4) % Baso % (Auto) 0.4 (0-2) % Lymph # (Auto) 2.2 (1.2-4.9) X10*3/uL [place] # (Auto) 0.5 (0.1-1.2) X10*3/uL Eos # (Auto) 0.4 (0.0-0.4) X10*3/uL Baso # (Auto) 0.0 (0.0-0.2) X10*3/uL Abs Immat Gran (auto) 0.03 (0.00-0.03) X10*3/uL Absolute Neuts (auto) 6.4 (2.0-8.3) x10*3/uL Absolute Nucleated RBC 0.000 (0.0-0.012) X10*3/uL Nucleated RBC % (auto) 0.0 (0.0-0.2) /100WBC Sodium 140 (135-145) mmol/L Potassium 4.4 (3.3-5.1) mmol/L Chloride 108 (96-108) mmol/L Carbon Dioxide 25 (22-29) mmol/L Anion Gap 11 L (12-20) BUN 12 (9-16) mg/dL Creatinine 0.86 (0.5-1.4) mg/dL Estim Creat Clear Calc 108.5 Estimated GFR > 60 Random Glucose 107 (60-115) mg/dL Calcium 9.6 D (8.4-10.2) mg/dL Total Bilirubin 0.5 (0.0-1.0) mg/dL AST 16 (5-31) U/L ALT 12 (0-31) U/L Alkaline Phosphatase 73 (39-117) U/L Troponin I High Sens < 2.7 (<3.5-17.0) ng/L Total Protein 7.4 (6.5-8.0) g/dL Albumin 3.5 (3.5-5.0) g/dL Beta HCG, Quant mIU/mL Urine Color Urine Appearance Urine pH (5.0-9.0) Ur Specific [place] (1.005-1.025) Urine Protein (Neg-Trace) mg/dL Urine Glucose (UA) (Negative) mg/dL Urine Ketones (Negative) mg/dL Urine Blood (Negative) Urine Nitrite (Negative) Ur Leukocyte Esterase (Negative) 01/22/23 01/22/23 Range/Units 17:38 18:53 WBC (4.8-10.8) X10*3/uL RBC (4.20-5.50) X10*6/uL Hgb (12.0-16.0) g/dl Hct (37.0-47.0) % MCV (80.0-98.0) fL MCH (27.0-33.0) pg MCHC (31.0-35.0) g/dl RDW (11.0-16.0) % Plt Count (160-400) X10*3/uL MPV (9.4-12.3) fL Immature Gran % (Auto) (0.0-0.4) % Neut % (Auto) (45-73) % Lymph % (Auto) (20-40) % [place] % (Auto) (2-11) % Eos % (Auto) (0-4) % Baso % (Auto) (0-2) % Lymph # (Auto) (1.2-4.9) X10*3/uL [place] # (Auto) (0.1-1.2) X10*3/uL Eos # (Auto) (0.0-0.4) X10*3/uL Baso # (Auto) (0.0-0.2) X10*3/uL Abs Immat Gran (auto) (0.00-0.03) X10*3/uL Absolute Neuts (auto) (2.0-8.3) x10*3/uL Absolute Nucleated RBC (0.0-0.012) X10*3/uL Nucleated RBC % (auto) (0.0-0.2) /100WBC Sodium (135-145) mmol/L Potassium (3.3-5.1) mmol/L Chloride (96-108) mmol/L Carbon Dioxide (22-29) mmol/L Anion Gap (12-20) BUN (9-16) mg/dL Creatinine (0.5-1.4) mg/dL Estim Creat Clear Calc Estimated GFR Random Glucose (60-115) mg/dL Calcium (8.4-10.2) mg/dL Total Bilirubin (0.0-1.0) mg/dL AST (5-31) U/L ALT (0-31) U/L Alkaline Phosphatase (39-117) U/L Troponin I High Sens (<3.5-17.0) ng/L Total Protein (6.5-8.0) g/dL Albumin (3.5-5.0) g/dL Beta HCG, Quant < 2 mIU/mL Urine Color Yellow Urine Appearance Cloudy Urine pH 6.5 (5.0-9.0) Ur Specific [place] 1.020 (1.005-1.025) Urine Protein Trace (Neg-Trace) mg/dL Urine Glucose (UA) Negative (Negative) mg/dL Urine Ketones Trace (Negative) mg/dL Urine Blood Negative (Negative) Urine Nitrite Negative (Negative) Ur Leukocyte Esterase Large (3+) H (Negative) Independent Interpretation I performed an independent interpretation of an: EKG and CT Scan Interpretation: Patient's EKG showed a sinus rhythm heart rate is 70 MD QRS QT within normal limits there is no acute ST segment elevation noted. CT scan of the head was grossly negative for any acute evidence of bleeding. No fracture. Radiology Impression Discussion of test interpretation with radiology: I have reviewed the radiologist's reading. Discharge Plan Discharge Clinical Impression: Syncope Patient Disposition: Admitted As Inpatient Prescriptions: No Action albuterol sulfate [Proventil HFA] 90 mcg/actuation HFA aerosol inhaler 2 puff inhalation Q4H PRN (Reason: Dyspnea) sertraline 50 mg tablet 50 mg PO DAILY loratadine [Allergy Relief (loratadine)] 10 mg tablet 10 mg PO DAILY cholecalciferol (vitamin D3) [Vitamin D3] 25 mcg (1,000 unit) capsule 25 mcg PO DAILY budesonide-formoterol [Symbicort] 80-4.5 mcg/actuation HFA aerosol inhaler 2 puff INHALATION
[2023-01-22 19:08] VITALS: BP 140/70; PULSE 65; RESP 18; O2SAT 98
--- NOTE | 2023-01-22 19:09 | PC.NURSE ---
Assumed care of pt. pt lying on stretcher, lights off for comfort. pt endorsing chronic R chest pain, sts she prefers herbal therapies, declined pain medication at this time. VSS, WCTM
--- NOTE | 2023-01-22 19:26 | PM.IMHP ---
History of Present Illness Date of Service: 01/22/23 Chief Complaint: Syncope This is a 37-year-old female with pertinent history of mood disorder and mild intermittent asthma who presents to the emergency department for evaluation of syncope. Patient states that she was sitting and talking to her family at 12:00 when she passed out. Patient's cousin states that she was out for 2-3 minutes. Patient regained consciousness after. Prior to passing out, patient states she got sweaty, dizzy and had mild midsternal chest discomfort. Patient states she had about 8-10 episodes of passing out similarly since April 2022. No jerking movement of extremities. No IV drug use. No tongue bite, urinary or bowel incontinence. Patient denies fever, chills, palpitations, shortness of breath, abdominal pain, changes in urinary or bowel habits. No history of CVA or ACS. Patient states that father had an heart attack before 50. Denies chewing or smoking tobacco Review of Systems Constitutional: Constitutional: Reports no additional constitutional complaints Cardiovascular: Cardiovascular: Reports chest pain Respiratory: Respiratory: Reports no additional respiratory complaints Gastrointestinal: Gastrointestinal: Reports no additional gastrointestinal complaints Genitourinary: Genitourinary: Reports no additional female genitourinary complaints [facility] Medical History Mild intermittent asthma Mood disorder Pertinent family history: Father with history of [place] before the age of 50 Social History Patient Tobacco Use Status: Never used Tobacco Use of substances other than those prescribed or required for medical reasons: Yes Substance Use Type: Marijuana Advance Directives: No Advance Directives Information Provided: Yes Nutrition Risks: No Nutritional Risk Meds Allergies Allergy/AdvReac Type Severity Reaction Status Date / Time Penicillins [PENICILLINS] Allergy Unknown HIVES Verified 01/22/23 19:29 Home Medications Medication Instructions Recorded Confirmed Last Taken Type albuterol sulfate 90 mcg/actuation 2 puff inhalation Q4H PRN Dyspnea 01/22/23 01/22/23 Unknown History aerosol inhaler (Proventil HFA) budesonide-formoterol HFA 80 2 puff inhalation BID 01/22/23 01/22/23 Unknown History mcg-4.5 mcg/actuation aerosol inhaler (Symbicort) cholecalciferol (vitamin D3) 25 25 mcg PO DAILY 01/22/23 01/22/23 Unknown History mcg (1,000 unit) capsule (Vitamin D3) loratadine 10 mg tablet (Allergy 10 mg PO DAILY allergies 01/22/23 01/22/23 Unknown History Relief (loratadine)) sertraline 50 mg tablet 50 mg PO DAILY 01/22/23 01/22/23 Unknown History Physical Exam Vital Signs and Narrative: Vital Signs: Last Vital Signs Temp 97.4 F 01/22/23 13:43 Pulse 65 01/22/23 19:08 Resp 18 01/22/23 19:08 BP 140/70 H 01/22/23 19:08 Pulse Ox 98 01/22/23 19:08 O2 Del Method Room Air 01/22/23 13:43 BMI result Body Mass Index 29.5 Middle-aged female lying in bed in no distress Neck supple, no JVD Regular rate and rhythm, S1-S2 heard Regular breath sounds bilaterally, no wheezing or crackles appreciated Abdomen soft nontender, no guarding, no rigidity Patient is awake, alert and oriented to self, place, time and person ; no focal motor deficit Psych: Normal mood No pedal edema Results Labs 01/22/23 14:00 01/22/23 14:00 Labs: Laboratory Results - last 24 hr 01/22/23 01/22/23 01/22/23 14:00 14:00 17:38 MCV 87.0 MCH 29.0 MCHC 33.3 RDW 12.7 Plt Count 342 MPV 10.1 Immature Gran % (Auto) 0.3 Neut % (Auto) 66.9 Lymph % (Auto) 22.6 [place] % (Auto) 5.6 Eos % (Auto) 4.2 H Baso % (Auto) 0.4 Lymph # (Auto) 2.2 [place] # (Auto) 0.5 Eos # (Auto) 0.4 Baso # (Auto) 0.0 Abs Immat Gran (auto) 0.03 Absolute Neuts (auto) 6.4 Absolute Nucleated RBC 0.000 Nucleated RBC % (auto) 0.0 Anion Gap 11 L Estim Creat Clear Calc 108.5 Estimated GFR > 60 Random Glucose 107 Calcium 9.6 D Total Bilirubin 0.5 AST 16 ALT 12 Alkaline Phosphatase 73 Troponin I High Sens < 2.7 Total Protein 7.4 Albumin 3.5 Beta HCG, Quant Urine Color Urine Appearance Urine pH Ur Specific [place] Urine Protein Urine Glucose (UA) Urine Ketones Urine Blood Urine Nitrite Ur Leukocyte Esterase 01/22/23 01/22/23 17:38 18:53 MCV MCH MCHC RDW Plt Count MPV Immature Gran % (Auto) Neut % (Auto) Lymph % (Auto) [place] % (Auto) Eos % (Auto) Baso % (Auto) Lymph # (Auto) [place] # (Auto) Eos # (Auto) Baso # (Auto) Abs Immat Gran (auto) Absolute Neuts (auto) Absolute Nucleated RBC Nucleated RBC % (auto) Anion Gap Estim Creat Clear Calc Estimated GFR Random Glucose Calcium Total Bilirubin AST ALT Alkaline Phosphatase Troponin I High Sens Total Protein Albumin Beta HCG, Quant < 2 Urine Color Yellow Urine Appearance Cloudy Urine pH 6.5 Ur Specific [place] 1.020 Urine Protein Trace Urine Glucose (UA) Negative Urine Ketones Trace Urine Blood Negative Urine Nitrite Negative Ur Leukocyte Esterase Large (3+) H Imaging Radiologist's Impressions: Impressions Cervical Spine CT 01/22/23 15:02 IMPRESSION: 1. No acute intracranial pathology. 2. No CT evidence of acute cervical spine fracture or traumatic subluxation Head CT 01/22/23 15:02 IMPRESSION: 1. No acute intracranial pathology. 2. No CT evidence of acute cervical spine fracture or traumatic subluxation Assessment and Plan (1) Syncope: Status: Acute Plan This is a 37-year-old female with pertinent history of mood disorder and mild intermittent asthma who presents to the emergency department for evaluation of syncope. #. Syncope. Unclear etiology. Will admit patient for observation with desk monitor. Consulted Cardiology and obtaining echocardiogram to rule out a cardiogenic cause. #. Mood disorder on sertraline #. Mild intermittent asthma. No exacerbation during admission #. Asymptomatic bacteriuria/pyuria: Patient without symptoms, defer treatment DVT prophylaxis: Lovenox Regular diet Full code Time Spent With Patient Time: Total time managing care of this patient today ____ minutes. Quality Stroke Does the patient have a stroke diagnosis?: No VTE Prior VTE?: No VTE Risk Level:: Medical - moderate - high VTE Device Contraindication: Treatment Not Indicated VTE Drug Contraindication: N/A - Med Ordered
--- NOTE | 2023-01-22 19:51 | PC.NURSE ---
pt refusing medicatoin at this time, including ordered Lovenox injectoin. pt has no s/sx of lower extremity pain, difficulty breathing or any other concnernin findings at this time. MD Cote notified.
--- NOTE | 2023-01-22 19:54 | PHA.MEDREC ---
Pharmacy Consult ? Medication Reconciliation Pharmacy has completed the medication reconciliation. Completed by rn, checked by pharmacy Eduard
--- NOTE | 2023-01-22 20:50 | PC.NURSE ---
Report called to NAYA Vasquez.
[2023-01-22 21:39] VITALS: BP 140/69; PULSE 54; RESP 17; TEMP 36.4; O2SAT 95
[2023-01-23 03:37] VITALS: BP 107/70; PULSE 56; RESP 17; TEMP 36.1; O2SAT 98
[2023-01-23 07:59] VITALS: PULSE 67; RESP 18; O2SAT 97
[2023-01-23 08:00] VITALS: BP 129/77; PULSE 66; RESP 20; TEMP 36.1; O2SAT 97
[2023-01-23 11:12] VITALS: BP 118/68; PULSE 66; RESP 18; TEMP 36.5; O2SAT 96
--- NOTE | 2023-01-23 11:37 | PM.DS ---
DS: Providers Provider Date of Service: 01/23/23 Date of admission: 01/22/23 19:24 Primary care physician: [facility] Consults: 01/22/23 19:24 Consult to Cardiology Routine Consulting Provider: [facility] Reason for consultation: syncope Has provider been notified: Yes DS: Diagnosis Discharge Diagnosis (1) Syncope: Status: Acute DS: Summary Hospital Course Hospital Course: This is a 37-year-old female with pertinent history of mood disorder and mild intermittent asthma who presents to the emergency department for evaluation of syncope.? Patient states that she was sitting and talking to her family at 12:00 when she passed out.? Patient's cousin states that she was out for 2-3 minutes.? Patient regained consciousness after.? Prior to passing out, patient states she got sweaty, dizzy and had mild midsternal chest discomfort.? Patient states she had about 8-10 episodes of passing out similarly since April 2022.? No jerking movement of extremities.? No IV drug use.? No tongue bite, urinary or bowel incontinence.? Patient denies fever, chills, palpitations, shortness of breath, abdominal pain, changes in urinary or bowel habits.? No history of CVA or ACS.? Patient states that father had an heart attack before 50.? Denies chewing or smoking tobacco Patient has syncopal episode at home. She reports that this has been ongoing and she has had syncopal episodes in the past. Her primary care provider Dr. Nancie Gonzales has been working her up. She reports approximately 1 month ago having a stress test and an echocardiogram as well as a tilt-table test. She reported that her primary doctor will be referring her to a neurologist next. Seems like she may have some sort of vestibular neuritis or inner ear problem that needs further workup by an ear nose and throat doctor. At this point the patient has no obvious symptoms for her syncope. She was noted to have an asymptomatic urinary tract infection and she will be on Levaquin for 3 days. At this point patient is hemodynamically stable, head CT negative for any acute abnormality, normal EKG showing sinus rhythm, all labs within acceptable limits. Patient without any dizziness currently. She will need to follow-up with primary care provider to complete this outpatient workup for syncope. Time Spent with Patient Time attestation: Total time managing care of this patient today ____ minutes. Discharge coordination time: Greater than 30 minutes Quality: Safe Use of Opioids Does Pt have an Active Cancer Diagnosis on the Problem List?: No Quality: Stroke Does the patient have a stroke diagnosis?: No Physical Exam Vital Signs: Vital Signs: Last Vital Signs Temp 97.7 F 01/23/23 11:12 Pulse 66 01/23/23 11:12 Resp 18 01/23/23 11:12 BP 118/68 01/23/23 11:12 Pulse Ox 96 01/23/23 11:12 O2 Del Method Room Air 01/23/23 11:12 BMI result Body Mass Index 29.5 Appearing in no acute distress head is normocephalic atraumatic eyes pupils are PERRLA sclera is anicteric mouth throat mucous membranes are intact and moist neck is supple no lymphadenopathy, no JVD noted lung sounds are clear to auscultation heart regular rate rhythm, clear S1, S2 positive bowel sounds, abdomen is soft, nontender neuro patient is alert x3, no focal deficits DS: Data Data Completed and Pending Labs on day of discharge: Laboratory Results - last 24 hr 01/22/23 01/22/23 01/22/23 14:00 14:00 17:38 WBC 9.6 RBC 5.14 Hgb 14.9 Hct 44.7 MCV 87.0 MCH 29.0 MCHC 33.3 RDW 12.7 Plt Count 342 MPV 10.1 Immature Gran % (Auto) 0.3 Neut % (Auto) 66.9 Lymph % (Auto) 22.6 [place] % (Auto) 5.6 Eos % (Auto) 4.2 H Baso % (Auto) 0.4 Lymph # (Auto) 2.2 [place] # (Auto) 0.5 Eos # (Auto) 0.4 Baso # (Auto) 0.0 Abs Immat Gran (auto) 0.03 Absolute Neuts (auto) 6.4 Absolute Nucleated RBC 0.000 Nucleated RBC % (auto) 0.0 Sodium 140 Potassium 4.4 Chloride 108 Carbon Dioxide 25 Anion Gap 11 L BUN 12 Creatinine 0.86 Estim Creat Clear Calc 108.5 Estimated GFR > 60 Random Glucose 107 Calcium 9.6 D Total Bilirubin 0.5 AST 16 ALT 12 Alkaline Phosphatase 73 Troponin I High Sens < 2.7 Total Protein 7.4 Albumin 3.5 Beta HCG, Quant Urine Color Urine Appearance Urine pH Ur Specific [place] Urine Protein Urine Glucose (UA) Urine Ketones Urine Blood Urine Nitrite Ur Leukocyte Esterase Urine RBC Urine WBC Ur Squamous Epith Cells Urine Bacteria Hyaline Casts 01/22/23 01/22/23 01/23/23 17:38 18:53 06:12 WBC 11.8 H RBC 4.86 Hgb 14.1 Hct 42.8 MCV 88.1 MCH 29.0 MCHC 32.9 RDW 12.6 Plt Count 339 MPV 10.4 Immature Gran % (Auto) 0.3 Neut % (Auto) 57.1 Lymph % (Auto) 31.7 [place] % (Auto) 6.8 Eos % (Auto) 3.6 Baso % (Auto) 0.5 Lymph # (Auto) 3.8 [place] # (Auto) 0.8 Eos # (Auto) 0.4 Baso # (Auto) 0.1 Abs Immat Gran (auto) 0.04 H Absolute Neuts (auto) 6.7 Absolute Nucleated RBC 0.000 Nucleated RBC % (auto) 0.0 Sodium Potassium Chloride Carbon Dioxide Anion Gap BUN Creatinine Estim Creat Clear Calc Estimated GFR Random Glucose Calcium Total Bilirubin AST ALT Alkaline Phosphatase Troponin I High Sens Total Protein Albumin Beta HCG, Quant < 2 Urine Color Yellow Urine Appearance Cloudy Urine pH 6.5 Ur Specific [place] 1.020 Urine Protein Trace Urine Glucose (UA) Negative Urine Ketones Trace Urine Blood Negative Urine Nitrite Negative Ur Leukocyte Esterase Large (3+) H Urine RBC 0-2 Urine WBC 21-50 H Ur Squamous Epith Cells 3-5 Urine Bacteria 2+ Hyaline Casts 0-2 01/23/23 06:12 WBC RBC Hgb Hct MCV MCH MCHC RDW Plt Count MPV Immature Gran % (Auto) Neut % (Auto) Lymph % (Auto) [place] % (Auto) Eos % (Auto) Baso % (Auto) Lymph # (Auto) [place] # (Auto) Eos # (Auto) Baso # (Auto) Abs Immat Gran (auto) Absolute Neuts (auto) Absolute Nucleated RBC Nucleated RBC % (auto) Sodium 139 Potassium 4.2 Chloride 106 Carbon Dioxide 22 Anion Gap 15 BUN 12 Creatinine 0.82 Estim Creat Clear Calc 113.7 Estimated GFR > 60 Random Glucose 95 Calcium 9.5 Total Bilirubin AST ALT Alkaline Phosphatase Troponin I High Sens Total Protein Albumin Beta HCG, Quant Urine Color Urine Appearance Urine pH Ur Specific [place] Urine Protein Urine Glucose (UA) Urine Ketones Urine Blood Urine Nitrite Ur Leukocyte Esterase Urine RBC Urine WBC Ur Squamous Epith Cells Urine Bacteria Hyaline Casts Preliminary micro results at discharge 01/22/23 21:41 Urine Culture - Preliminary Urine clean catch - Urine acosta top Culture too young to evaluate. Discharge Plan Discharge Anticipated Discharge Date/Time: 01/23/23 11:31 Patient Disposition: Home, Self-Care Discharge Diagnosis: syncope with history of vasovagal syncope UTI Referrals: [place],[facility] [Primary Care Provider] - 1 Week Discharge Medications: New levofloxacin 250 mg Tablet 250 mg PO Q24H Qty: 2 0RF Continued albuterol sulfate [Proventil HFA] 90 mcg/actuation HFA aerosol inhaler 2 puff inhalation Q4H PRN (Reason: Dyspnea) sertraline 50 mg tablet 50 mg PO DAILY loratadine [Allergy Relief (loratadine)] 10 mg tablet 10 mg PO DAILY cholecalciferol (vitamin D3) [Vitamin D3] 25 mcg (1,000 unit) capsule 25 mcg PO DAILY budesonide-formoterol [Symbicort] 80-4.5 mcg/actuation HFA aerosol inhaler 2 puff INHALATION BID Discharge Orders: Discharge Order (Routine); Ordered 01/23/23 Ordered By: Anahi Archibald Diet: Advance to usual diet Activity on Discharge: As tolerated Stand Alone Forms: Patient Portal Discharge page Care Plan Goals: take caution while doing activities such as driving and activities that require you to be alone like swimming in light of syncopal episodes. Health Concerns: Follow-up with primary care provider to contain outpatient workup that has already been started by Dr. Nancie Gonzales Plan of Treatment: syncope with history of vasovagal syncope UTI Assessment: see discharge summary
--- NOTE | 2023-01-23 12:41 | MHC.CM.PN ---
EMR REVIEWED, NAN DELIVERED TO BEDSIDE 01/23/23, DISCHARGE ORDER IN, CM MET W/PT WHO IS REQUESTING [facility]FT HOME, PT REPORTS SHE IS INDEP W/ALL CARE, DENIES USE OF DME/SERVICES, PT DENIES RECEIVING ANY COVID VACCINES, PCP IS LIZBETH CHIN AND PT EDUCATED ON AND DECLINES TO COMPLETE A HCP AT THIS TIME. PT DISCHARGING HOME SELF-CARE VIA [facility]
[2023-01-26 05:28] LABS: Lyme Abs Screen <0.90 index
== END 2023-01-23 13:05 | disposition home or self-care (01) ==
LOC: HO.ED 19:42 → HO.EDOVER 19:58 → HO.IMC 20:12
PROVIDERS: Admitting Provider Student in an Organized Health Care Education/Training Program; Emergency Provider Emergency Medicine Emergency Medical Services; Visit Provider Nurse Practitioner Acute Care
DX: R55 Syncope and collapse (principal); N39.0 Urinary tract infection, site not specified; F39 Unspecified mood [affective] disorder; J45.20 Mild intermittent asthma, uncomplicated; Z79.899 Other long term (current) drug therapy
CPT/HCPCS: 36415; 70450; 72125; 80048; 80053; 81001; 81003; 84484; 84702; 85025; 86617; 86618; 87086; 93005; 94640; 99222; 99285

== ENCOUNTER 2024-02-19 11:19 | Outpatient (REF) | payer MEDICAID, SELFPAY ==
[2024-02-19 13:50] LABS: MANUAL DIFF FLAG NO
[2024-02-19 14:13] LABS: Basophils Absolute Auto 0.1 X10*3/uL (0.0-0.2); Basophils Percent Auto 0.6 % (0-2); Eosinophils Absolute Auto 0.4 X10*3/uL (0.0-0.4); Eosinophils Percent Auto 3.9 % (0-4); Hematocrit 46.6 % (37.0-47.0); Hemoglobin 15.3 g/dl (12.0-16.0); Imm Gran Abs Auto 0.03 X10*3/uL (0.00-0.03); Imm Gran Pct Auto 0.3 % (0.0-0.4); Lymphocytes Absolute Auto 2.9 X10*3/uL (1.2-4.9); Mean Corpuscular HGB Conc 32.8 g/dl (31.0-35.0); Mean Corpuscular Hemoglobin 29.4 pg (27.0-33.0); Mean Corpuscular Volume 89.4 fL (80.0-98.0); Mean Platelet Volume 10.4 fL (9.4-12.3); Monocytes Absolute Auto 0.5 X10*3/uL (0.1-1.2); Monocytes Percent Auto 5.2 % (2-11); Platelet Count 350 X10*3/uL (160-400); Red Blood Count 5.21 X10*6/uL (4.20-5.50); White Blood Count 9.9 X10*3/uL (4.8-10.8)
[2024-02-19 14:20] LABS: Estimated Average Glucose 114 mg/dL; Hemoglobin A1c % 5.6 % (<6.0)
[2024-02-19 14:30] LABS: Alanine Aminotransferase 5 U/L (0-31); Albumin Level 3.6 g/dL (3.5-5.0); Alkaline Phosphatase 66 U/L (39-117); Anion Gap 12 (12-20); Aspartate Amino Transferase 15 U/L (5-31); Bilirubin Direct 0.2 mg/dL (0.0-0.5); Bilirubin Total 0.4 mg/dL (0.0-1.0); Blood Urea Nitrogen 13 mg/dL (9-16); Calcium 9.4 mg/dL (8.4-10.2); Carbon Dioxide 22 mmol/L (22-29); Chloride 108 mmol/L (96-108); Cholesterol 257 mg/dL (<200); Estimated Glomerular Filt Rate > 60; Glucose Random 96 mg/dL (60-115); HDL Cholesterol 48 mg/dL (>40); LDL Cholesterol Calculated 192 mg/dL (<100); Magnesium 2.3 mg/dL (1.6-2.6); Sodium 138 mmol/L (135-145); Total Protein 7.5 g/dL (6.5-8.0); Triglycerides 87 mg/dL (<150)
[2024-02-19 14:36] LABS: TSH reflex Free T4 0.06 uIU/mL (0.32-4.0); Vitamin D 25-OH Total 32.7 ng/mL (>30)
[2024-02-19 15:20] LABS: CT PCR NOT DETECTED (Not Detect.); NG PCR NOT DETECTED (Not Detect.)
[2024-02-19 15:31] LABS: Free T4 (Free Thyroxine) 1.09 ng/dL (0.71-1.85)
[2024-02-20 04:33] LABS: HIV AB/AG Nonreactive (Nonreactive); HIV Num 1 0.17 S/CO (0.00-0.99); ~HepC Num1 0.15 S/CO (0.00-0.79); ~Hepatitis C Antibody Nonreactive (Nonreactive)
[2024-02-21 14:13] LABS: RPR Rapid Plasma Reagin NON-REACTIVE (NON-REACTIVE)
== END 2024-02-19 11:20 | disposition home or self-care (01) ==
LOC: HO.HHCL 11:19
PROVIDERS: Visit Provider Family Medicine
DX: R42 Dizziness and giddiness (principal); E55.9 Vitamin D deficiency, unspecified; Z11.3 Encounter for screening for infections with a predominantly sexual mode of transmission; R73.03 Prediabetes; Z68.31 Body mass index [BMI] 31.0-31.9, adult
CPT/HCPCS: 36415; 80048; 80061; 80076; 82306; 83036; 83735; 84439; 84443; 85025; 86592; 86803; 87389; 87491; 87591

== ENCOUNTER 2024-04-25 11:15 | Outpatient (REF) | payer MEDICAID, SELFPAY ==
[2024-04-25 14:04] LABS: Alanine Aminotransferase 6 U/L (0-31); Albumin Level 3.4 g/dL (3.5-5.0); Alkaline Phosphatase 66 U/L (39-117); Aspartate Amino Transferase 14 U/L (5-31); Bilirubin Direct 0.2 mg/dL (0.0-0.5); Bilirubin Total 0.4 mg/dL (0.0-1.0); Cholesterol 228 mg/dL (<200); HDL Cholesterol 54 mg/dL (>40); LDL Cholesterol Calculated 156 mg/dL (<100); Total Protein 7.1 g/dL (6.5-8.0); Triglycerides 93 mg/dL (<150)
== END 2024-04-25 11:16 | disposition home or self-care (01) ==
LOC: HO.HHCL 11:15
PROVIDERS: Visit Provider Family Medicine
DX: E78.5 Hyperlipidemia, unspecified (principal)
CPT/HCPCS: 36415; 80061; 80076

== ENCOUNTER 2024-09-11 12:44 | Outpatient (REF) | payer MEDICAID, SELFPAY ==
--- NOTE | 2024-09-11 12:47 | EEG_ITS ---
This is a 16-channel EEG with an EKG lead. The patient is reported awake during the tracing. Background EEG rhythm is about 10 hertz 5 to 20 microvolt posteriorly and lower amplitude fast anteriorly. One brief episode of left hemispheric asymmetric theta range discharge was noted. In addition, there were few right temporal sharp waves. Photic stimulation does not produce any significant abnormality. Hyperventilation is not performed. Cardiac lead does not reveal any significant abnormality. IMPRESSION: Abnormal EEG suggestive of underlying tendency for partial or complex partial seizure disorder. MD NORM Rivera/LISBETH / [id number]
--- OUTSIDE RECORDS SUMMARY | 2024-09-11 13:38 | XMS_ITS | Clinical Summary ---
Author Organization [facility] Address [address] [place] [address] Care Team Providers Care Bread Panner Name Role Phone Unavailable Primary Care Provider Unavailabl e Social History Tobacco Use Types Packs/Day Years Used Date Smoking Tobacco: Never Assessed Sex and Gender Information Value Date Recorded Sex Assigned at Not on file Gender Identity Not on file Sexual Orientation Not on file Plan of Treatment Health Maintenance Due Date Last Done Comments Hepatitis C Virus Screening 1986 HIV Screening 1999 DTaP/Tdap/Td Vaccines (1 - Tdap) 2005 Hepatitis B Vaccines (1 of 3 - 19+ 3-dose series) 2005 COVID-19 Vaccine (2023-2 5 season) 2024 HPV Vaccines Aged Out No longer eligi ble based on patient's age to complete this topic Pneumococcal Vaccine: Pediat toyin (0-5 Years) and At-Risk Patients (6 to 49 Years) Aged Out No longer eligible b ased on patient's age to complete this topic
== END 2024-09-11 12:45 | disposition home or self-care (01) ==
LOC: HO.NEURO 12:44
PROVIDERS: PCP Family Medicine; Visit Provider Family Medicine
DX: R40.4 Transient alteration of awareness (principal)
CPT/HCPCS: 95816

== ENCOUNTER 2025-01-30 14:06 | Outpatient (REF) | payer MEDICAID, SELFPAY ==
--- NOTE | ~2025-01-30 | US_ITS ---
EXAMINATION: US PELVIS CLINICAL INFORMATION: Aries pain. Abnormal masses. COMPARISON: October 13, 2008 TECHNIQUE: Real-time ultrasound of the pelvis using a curvilinear transducer and transabdominal approach with grayscale and color Doppler technique. FINDINGS: Uterus: The uterus is anteversion flexion and measures 7 x 3 x 5 cm. The double wall endometrial thickness is 5 mm. The uterus is smooth in contour and has normal myometrial echogenicity. No visible fibroid. Adnexa: Both ovaries are visualized. There is normal color flow to the adnexa. There is no ovarian torsion. There is no pelvic ascites or fluid collection. Right ovary measures 3 x 2 x 2 cm. Volume: 7 cc Left ovary measures 3 x 2 x 2 cm. Volume: 3 cc. US/US pelvic complete IMPRESSION: Normal transabdominal pelvic ultrasound. Electronically signed by: Bonilla Stokes MD 01/30/2025 03:06 PM EDT
--- OUTSIDE RECORDS SUMMARY | 2025-01-30 14:09 | XMS_ITS | Encounter Summary ---
Author Organization [employer] Address [address] [place] [address] [address] [place] [address] Care Team Providers Care Vacuum Cooker Operator Name Role Phone Nancie Gonzales MD Primary Care Provider +1- [phone] Encounter Details Date Type Department Care Team (Latest Contact Info) Description 04/08/2019 Abstract [facility] CONVERSIONS Dental, Provider, DDS Social History Tobacco Use Types Packs/Day Years Used Date Smoking Tobacco: Never Assessed Comments Unknown Sex and Gender Information Value Date Recorded Sex Assigned at Female 05/22/2022 10:19 AM EDT Legal Sex Female 10:19 AM EDT Gender Identity Female 05/22/2022 10:19 AM EDT Sexual Orientation Choose not to disclose 2021 10:19 AM EDT documented as of this encounter Plan of Treatment Not on file documented as of this encounter Visit Diagnoses Not on filedocumented in this encounter Care Teams Vacuum Cooker Operator Relationship Specialty Start Date End Date Nancie Gonzales MD [address] [place] [id number] PCP - General Family Medicine 07/23/18 Joon Liu Traffic Monitor SpecialistOperating Room Tech 11/15/23 Dr. Dos Santos Psychiatry 12/24/24 Dr. Murdock Neurology 12/24/24 documented as of this encounter
--- OUTSIDE RECORDS SUMMARY | 2025-01-30 14:09 | XMS_ITS | Clinical Summary ---
Author Organization [facility] Address [address] [place] [address] Care Team Providers Care Racking Technician Name Role Phone Unavailable Primary Care Provider Unavailabl e Social History Tobacco Use Types Packs/Day Years Used Date Smoking Tobacco: Never Assessed Comments Unknown Sex and Gender Information Value Date Recorded Sex Assigned at Not on file Legal Sex Female 6:40 PM EST Gender Identity Not on file Sexual Orientation [...]
== END 2025-01-30 14:07 | disposition home or self-care (01) ==
LOC: HO.US 14:06
PROVIDERS: PCP Family Medicine; Visit Provider Family Medicine
DX: N92.6 Irregular menstruation, unspecified (principal); R10.2 Pelvic and perineal pain
CPT/HCPCS: 76830; 76856

== ENCOUNTER → 2025-01-30 14:12 | Outpatient (BNV) | payer MEDICAID, SELFPAY | PROVIDERS: PCP Family Medicine; Visit Provider Radiology Diagnostic Radiology | DX: R19.00 Intra-abdominal and pelvic swelling, mass and lump, unspecified site (principal); R10.9 Unspecified abdominal pain | CPT/HCPCS: 76856 ==

== ENCOUNTER 2025-04-29 09:30 | Outpatient (REF) | payer MEDICAID, SELFPAY ==
[2025-04-29 11:42] LABS: MANUAL DIFF FLAG NO
[2025-04-29 11:46] LABS: Hematocrit 40.7 % (37.0-47.0); Hemoglobin 13.6 g/dl (12.0-16.0); Imm Gran Abs Auto 0.02 X10*3/uL (0.00-0.03); Imm Gran Pct Auto 0.2 % (0.0-0.4); Lymphocytes Absolute Auto 2.5 X10*3/uL (1.2-4.9); Mean Corpuscular HGB Conc 33.4 g/dl (31.0-35.0); Mean Corpuscular Hemoglobin 29.4 pg (27.0-33.0); Mean Corpuscular Volume 87.9 fL (80.0-98.0); NRBC Abs Auto 0.000 X10*3/uL (0.0-0.012); NRBC Pct Auto 0.0 /100WBC (0.0-0.2); Platelet Count 345 X10*3/uL (160-400); Red Blood Count 4.63 X10*6/uL (4.20-5.50); White Blood Count 8.7 X10*3/uL (4.8-10.8)
[2025-04-29 12:27] LABS: Alanine Aminotransferase 6 U/L (0-31); Albumin Level 3.5 g/dL (3.5-5.0); Alkaline Phosphatase 65 U/L (39-117); Anion Gap 8 (12-20); Aspartate Amino Transferase 17 U/L (5-31); Blood Urea Nitrogen 12 mg/dL (9-16); Calcium 8.8 mg/dL (8.4-10.2); Carbon Dioxide 28 mmol/L (22-29); Chloride 110 mmol/L (96-108); Cholesterol 224 mg/dL (<200); Estimated Glomerular Filt Rate > 60; HDL Cholesterol 57 mg/dL (>40); Potassium 3.9 mmol/L (3.3-5.1); Sodium 142 mmol/L (135-145); Total Protein 6.7 g/dL (6.5-8.0); Triglycerides 59 mg/dL (<150)
== END 2025-04-29 09:31 | disposition home or self-care (01) ==
LOC: HO.HHCL 09:30
PROVIDERS: PCP Family Medicine; Visit Provider Family Medicine
DX: R73.03 Prediabetes (principal); R41.82 Altered mental status, unspecified; F32.A Depression, unspecified; F41.1 Generalized anxiety disorder; E78.5 Hyperlipidemia, unspecified; E55.9 Vitamin D deficiency, unspecified
CPT/HCPCS: 36415; 80048; 80061; 80076; 81515; 82306; 83036; 84443; 85025; 87491; 87591

== ENCOUNTER 2025-05-01 08:36 | Outpatient (REF) | payer MEDICAID, SELFPAY ==
--- OUTSIDE RECORDS SUMMARY | 2025-04-29 16:00 | XMS_ITS | Encounter Summary ---
Author Organization [employer] Address [address] [place] [address] [address] [place] [address] Care Team Providers Care Warehouse Stocker Name Role Phone Nancie Gonzales MD Primary Care Provider +1- [phone] Reason for Visit * Reason Comments Vaginal Itching vaginal odor Encounter Details Date Type Department Care Team ([facility] st Contact Info) Description 04/29/2025 4:00 PM EDT Office Visit [facility] [address] [place] [address] Guille Carter MD [address] [place] [address] Vaginal discharge (Primary Dx); Vaginal itching Social History Tobacco Use Types Packs/Day Years Used Date Smoking Tobacco: Former Cigarettes Smokeless Tobacco: Never Alcohol Use Standard Drinks/Week Comments Never 0 (1 standard drink = 0.6 oz pur e alcohol) Depression Answer Date Recorded Patient Health Questionnaire-9 Score 17 12/24/2024 Patient Health Questionnaire-9 Score 17 12/24/2024 Last PHQ-9: Questionnaire Data Not on file 0 12/24/2024 Housing Stability Answer Date Recorded What is your housing situation today? I have vicki huerta 12/24/[address] you li ve. Do you have problems with any of the following? Pests such as bugs, ants, or mice 12/24/2024 Food Insecurity Answer Date Recorded Within the past 12 months, y ou worried that your food would run out before you got money to buy more: Never True 12/24/2024 Within the past 12 months,th e food you bought just didn't last and you didn't have enough money to get more: Never True 10/2024 Transportation Answer Date Recorded In the past 12 months, has l ack of transportation kept you from medical appts, meetings, work or from getting things needed for daily living? Yes, it has kept me from medical appointments or getting medications. 12/24/2024 Utilities Answer Date Recorded In the past 12 months, has t he electric, gas, oil or water company threatened to shut off services in your home? Yes 12/24/2024 Depression Answer Date Recorded Patient Health Questionnaire-2 Score 4 12/24/2024 Internet Access Answer Date Recorded Internet Access Q1 No 12/24/2024 Internet Access Q2 Not on file 12/24/2024 Comments Unknown Sex and Gender Information Value Date Recorded Sex Assigned at Female 05/22/2022 10:19 AM EDT Legal Sex Female 10:19 AM EDT Gender Identity Female 05/22/2022 10:19 AM EDT Sexual Orientation Choose not to disclose 2021 10:19 AM EDT documented as of this encounter Last Filed Vital Signs Vital Sign Reading Time Taken Comments Blood Pressure 132/79 04/29/2025 3:54 PM EDT Pulse 58 04/29/2025 3:54 PM EDT Temperature 36.6 C (97.8 F) 04/29/2025 3:54 PM EDT Respiratory Rate 18 04/29/2025 3:54 PM EDT Oxygen Saturation 98% 04/29/2025 3:54 PM EDT Inhaled Oxygen Concentration - - Weight 80.1 kg (176 lb 9.6 oz) 04/29/2025 3:54 P M EDT Height - - Body Mass Index 26.08 04/22/2025 2:07 PM EDT documented in this encounter Progress Notes * Guille Carter MD - 04/29/2025 4:00 PM EDT Subjective Patient ID: Nellie Carbone is a 40 y.o. female. HPI Nellie had onset 1 month ago of vaginal odor, itching, white discharge. States she has a new partner of 2 month and has unprotected intercourse. No urinary, n/v/d, abdominal pain. States history of chlamydia years ago. Lives alone. LMP=last week. 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 Former smoker. 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 Respiratory: Negative for shortness of breath. Cardiovascular: Negative for chest pain. Gastrointestinal: Negative for abdominal pain. Genitourinary: Positive for vaginal discharge. Negative for dysuria and pelvic pain. Skin: Negative for rash. Neurological: Negative for headaches. Objective Physical Exam Vitals and nursing note reviewed. Constitutional: Appearance: Normal appearance. HENT: Head: Normocephalic and atraumatic. Nose: Nose normal. Eyes: Conjunctiva/sclera: Conjunctivae normal. Pupils: Pupils are equal, round, and reactive to light. Pulmonary: Effort: Pulmonary effort is normal. Skin: General: Skin is warm and dry. Neurological: Mental Status: She is alert. Gait: Gait is intact. Psychiatric: Mood and Affect: Mood and affect normal. Behavior: Behavior normal. Procedures Assessment/Plan Diagnoses and all orders for this visit: Vaginal discharge UCG negative UA negative except for few leuks Self swab for BV panel, GC/CT ordered. Will call patient with results. Blood STI tests ordered. Counseled patient on having partner always use condoms. She states she has supply at home. Return to clinic if not improving. - Hepatitis B Core Antibody, Total; Future - Hepatitis B Surface Antibody, Qualitative; Future - Hepatitis B surface antigen, EIA; Future - Hepatitis C Antibody with Reflex to HCV, RNA, Quantitative, Real-Time PCR; Future - HIV-1/2 Antigen and Antibodies, Fourth Generation, with Reflexes; Future - RPR (Monitor) with Reflex to Titer; Future Vaginal itching - POCT urinalysis dipstick manually resulted - Bacterial Vaginosis Panel - Chlamydia/N. Gonorrhoeae RNA, TMA, Vaginal documented in this encounter Plan of Treatment Scheduled Orders Name Type Priority Associated Diagnoses Orde r Schedule Bacterial Vaginosis Panel Microbiology Routine Vaginal itching Ordered: 04/29/2025 Chlamydia/N. Gonorrhoeae RNA, TMA, Vaginal Microbiology Routine Vaginal itching Ordered: 04/29/2025 Hepatitis B Core Antibody, Total Lab Routine Vaginal discharge Expected: 04/29/2025 (Approximate), Expires: 04/29/2026 Hepatitis B Surface Antibody, Qualitative Lab Routine Vaginal discharge Expected: 04/29/2025 (Approximate), Expires: 04/29/2026 Hepatitis B surface antigen, EIA Lab Routine Vaginal discharge Expected: 04/29/2025 (Approximate), Expires: 04/29/2026 Hepatitis C Antibody with Reflex to HCV, RNA, Quantitative, Real-Time PCR Lab Routine Vaginal discharge Expected: 04/29/2025 (Approximate), Expires: 04/29/2026 HIV-1/2 Antigen and Antibodies, Fourth Generation, with Reflexes Lab Routine Vaginal discharge Expected: 04/29/2025 (Approximate), Expires: 04/29/2026 RPR (Monitor) with Reflex to Titer Lab Routine Vaginal discharge Expected: 04/29/2025 (Approximate), Expires: 04/29/2026 documented as of this encounter Procedures Procedure Name Priority Date/Time Associated Diagnosis Comments POCT URINALYSIS DIPSTICK Routine 04/29/2025 4:15 PM EDT Vaginal itching documented in this encounter Results * (ABNORMAL) POCT urinalysis dipstick manually resulted (04/29/2025 4:15 PM EDT) Color, UA Yellow Clarity, UA Clear Glucose, UA Negative Bilirubin, UA Negative Ketones, UA Negative Spec Grav, UA 1.025 Blood, UA Negative Negative, None Detected pH, UA 5.5 Protein, UA Negative Urobilinogen, UA 0.2 Leukocytes, UA Few 15(A) Negative, Rare, Trace Comment:small Nitrite, UA Negative Negative, None Detected Urine 04/29/2025 4:15 PM EDT Guille Carter MD POINT OF CARE TEST ENTER/EDIT OR DERABLES Final Result documented in this encounter Visit Diagnoses Diagnosis Vaginal discharge- Primary Leukorrhea, not specified as infective Vaginal itching Pruritus of genital organs documented in this encounter Additional Health Concerns Assessment Noted Time PHQ-9 Depression Total Score: 17 025 4:04 PM EDT documented as of this encounter Care Teams Warehouse Stocker Relationship Specialty Start Date End Date Nancie Gonzales MD [address] [place] [address] PCP - General Family Medicine 07/23/18 Joon Liu Autopsy PathologistVeneer Press Operator 11/15/23 Dr. Dos Santos Psychiatry 12/24/24 Dr. Murdock Neurology 12/24/24 documented as of this encounter
--- OUTSIDE RECORDS SUMMARY | 2025-05-01 08:51 | XMS_ITS | Encounter Summary ---
Author Organization [employer] Address [address] [facility] [address] [place] [address] Care Team Providers Care National Park Tour Guide Name Role Phone Nancie Gonzales MD Primary Care Provider +1- [phone] Encounter Details Date Type Department Care Team (Latest Contact Info) Description 04/29/2025 Travel Social History Tobacco Use Types Packs/Day Years [...] is your housing situation today? I have vickilita huerta 12/24/[address] you [...] the past 12 months, has t he [employer], [employer], oil or water company threatened to shut [...] Diagnoses Not on filedocumented in this encounter Additional Health Concerns Assessment Noted Time PHQ-9 Depression Total Score: 17 025 4:04 PM EDT documented as of this encounter Care Teams National Park Tour Guide Relationship Specialty Start Date End Date Nancie Gonzales MD [address] [place] [id number] PCP - General Family Medicine 07/23/18 Joon Liu Field CashierDirector And Professor 11/15/23 Dr. Dos Santos Psychiatry 12/24/24 Dr. Murdock Neurology 12/24/24 documented as of this encounter
--- OUTSIDE RECORDS SUMMARY | 2025-05-01 08:51 | XMS_ITS | Encounter Summary ---
Author Organization [employer] Address [address] [place] [address] [address] [place] [address] Care Team Providers Care District Associate Judge Name Role Phone Nancie Gonzales MD Primary Care Provider +1- [phone] Reason for Visit * Reason Onset Date Comments Care Coordination 04/30/2025 Encounter Details Date Type Department Care Team ([facility] st Contact Info) Description 04/30/2025 Telephone [facility] [address] [place] [address] Nancie Gonzales MD [address] [place] [address] Care Coordination Social History Tobacco Use Types Packs/Day Years [...] AM EDT documented as of this encounter Miscellaneous Notes * Telephone Encounter - Siddhartha Sequeira RN - 04/30/2025 11:22 AM EDT TC placed to patient [phone] regarding below message. RN informed patient the the lab was unable to add her STI labs and for her to return to the [facility] lab at [facility] to have them drawn. Pt verbalizedunderstanding. PT to F/U PRN. ----- Message from Guille Carter MD sent at 04/30/2025 11:08 AM EDT ----- Hi. Could you notify Nellie that the lab was unable to add STI blood tests to the tests that had been drawn earlier yesterday, ordered by another provider. She can have them drawn at the [facility] lab. Thanks. Delmar documented in this encounter Plan of Treatment Not on file documented as of this encounter Visit Diagnoses Not on filedocumented in this encounter Additional Health Concerns Assessment Noted Time PHQ-9 Depression Total Score: 17 025 4:04 PM EDT documented as of this encounter Care Teams District Associate Judge Relationship Specialty Start Date End Date Nancie Gonzales MD [address] [place] [id number] PCP - General Family Medicine 07/23/18 Joon Liu Construction SpecialistFloor Inspector 11/15/23 Dr. Dos Santos Psychiatry 12/24/24 Dr. Murdock Neurology 12/24/24 documented as of this encounter
--- OUTSIDE RECORDS SUMMARY | 2025-05-01 08:51 | XMS_ITS | Encounter Summary ---
Author Organization [employer] Address [address] [place] [address] [address] [place] [address] Care Team Providers Care Twister Hand Name Role Phone Nancie Gonzales MD Primary Care Provider +1- [phone] Encounter Details Date Type Department Care Team [...] on filedocumented in this encounter Care Teams Twister Hand Relationship Specialty Start Date End Date Nancie Gonzales MD [address] [place] [address] PCP - General Family Medicine 07/23/18 Joon Liu Baby Formula MixerMixing House Operator 11/15/23 Dr. Dos Santos Psychiatry 12/24/24 Dr. Murdock Neurology 12/24/24 documented as of this encounter
--- OUTSIDE RECORDS SUMMARY | 2025-05-01 08:51 | XMS_ITS | Encounter Summary ---
Author Organization [employer] Address [address] [place] [address] [address] [place] [address] Care Team Providers Care Restoration Silversmith Name Role Phone Nancie Gonzales MD Primary Care Provider +1- [phone] Reason for Visit * Reason Onset Date Comments CT/NG AND BV not perform 04/30/2025 Encounter Details Date Type Department Care Team ([facility] st Contact Info) Description 04/30/2025 Telephone [facility] MEDICINE [address] [place] [address] Guille Carter MD [address] [place] [address] CT/NG AND BV not perform Social History Tobacco Use Types Packs/Day Years [...] as of this encounter Miscellaneous Notes * Addendum Note - Monique Chow RN - 04/30/2025 3:23 PM EDTAddended by: MONIQUE CHOW on: 04/30/2025 03:23 PM Modules accepted: Orders * Telephone Encounter - Monique Chow RN - 04/30/2025 3:14 PM EDT Tc placed to patient [phone] regarding below message. RN informed patient that her Vaginal swab was contaminated and she needs to [facility] for recollection of the vaginal swab.RN also informed patient he does not need an appointment. Pt reported she will come on 04/30/2025. Pt verbalized understanding. PT to F/U PRN. * Telephone Encounter - Taqueria Hylton MA - 04/30/2025 2:40 PM EDT Incoming call from [facility] [place] [place] lab to informed that due to collection tube received didn't have the swab. Both CT/NG and BV will need re-collection if needed. documented in this encounter Plan of Treatment Not on file documented as of this encounter Visit Diagnoses Diagnosis Vaginal itching- Primary Pruritus of genital organs documented in this encounter Additional Health Concerns Assessment Noted Time PHQ-9 Depression Total Score: 17 025 4:04 PM EDT documented as of this encounter Care Teams Restoration Silversmith Relationship Specialty Start Date End Date Nancie Gonzales MD [address] [place] [address] PCP - General Family Medicine 07/23/18 Joon Liu Credit Control OfficerProfessor Of Anthropology 11/15/23 Dr. Dos Santos Psychiatry 12/24/24 Dr. Murdock Neurology 12/24/24 documented as of this encounter
--- OUTSIDE RECORDS SUMMARY | 2025-05-01 08:51 | XMS_ITS | Encounter Summary ---
Author Organization [employer] Address [address] [place] [address] [address] [place] [address] Care Team Providers Care Batch Attendant Name Role Phone Nancie Gonzales MD Primary Care Provider +1- [phone] Reason for Visit * Reason Comments Med Refill Encounter Details Date Type Department Care Team ([facility] st Contact Info) Description 12/19/2024 Refill [facility] MEDICINE [address] [place], [place] [phone] Nancie Gonzales MD [address] [place], [place] [phone] Mild intermittent asthma, unspecified whether complicated; Wheezing Social History Tobacco Use Types Packs/Day Years Used Date Smoking Tobacco: Former Cigarettes Smokeless Tobacco: Never Alcohol Use Standard Drinks/Week Comments Never 0 (1 standard drink = 0.6 oz pur e alcohol) Depression Answer Date Recorded Patient Health Questionnaire-9 Score 17 04/28/2024 Patient Health Questionnaire-9 Score 17 04/28/2024 Last PHQ-9: Questionnaire Data Not on file 1 Housing Stability Answer Date Recorded What is your housing situation today? I have vicki huerta 06/27/[address] you li ve. Do you have problems with any of the following? None of the above 06/27/2023 Food Insecurity Answer Date Recorded Within the past 12 months, y ou worried that your food would run out before you got money to buy more: Never True 06/27/2023 Within the past 12 months,th e food you bought just didn't last and you didn't have enough money to get more: Never True 12/ 12/2022 Transportation Answer Date Recorded In the past 12 months, has l ack of transportation kept you from medical appts, meetings, work or from getting things needed for daily living? No 06/27/2023 Utilities Answer Date Recorded In the past 12 months, has t he electric, gas, oil or water company threatened to shut off services in your home? No 06/27/2023 Depression Answer Date Recorded Patient Health Questionnaire-2 Score 3 04/28/2024 Comments Unknown Sex and Gender Information Value Date Recorded Sex Assigned at Female 05/22/2022 10:19 AM EDT Legal Sex Female 10:19 AM EDT Gender Identity Female 05/22/2022 10:19 AM EDT Sexual Orientation Choose not to disclose 2021 10:19 AM EDT documented as of this encounter Plan of Treatment Not on file documented as of this encounter Visit Diagnoses Diagnosis Mild intermittent asthma, unspecified whether complicated Wheezing documented in this encounter Additional Health Concerns Assessment Noted Time PHQ-9 Depression Total Score: 17 024 11:43 AM EDT documented as of this encounter Care Teams Batch Attendant Relationship Specialty Start Date End Date Nancie Gonzales MD [address] [place] [address] PCP - General Family Medicine 07/23/18 Joon Liu Control Systems TechnicianCryptographic Vulnerability Analyst 11/15/23 Dr. Dos Santos Psychiatry 12/24/24 Dr. Murdock Neurology 12/24/24 documented as of this encounter
--- OUTSIDE RECORDS SUMMARY | 2025-05-01 08:51 | XMS_ITS | Clinical Summary ---
Author Organization [facility] Address [address] [place] [address] Care Team Providers Care Inside Sales Director Name Role Phone Unavailable Primary Care Provider [...] series) 2005 COVID-19 Vaccine (2023-2 5 season) 2025 HPV Vaccines (No Doses Required) Completed Pneumococcal Vaccine: Pediat toyin (0-5 Years) and At-Risk Patients (6 to 49 Years) Aged Out No longer eligible b ased on patient's age to complete this topic
--- OUTSIDE RECORDS SUMMARY | 2025-05-01 08:51 | XMS_ITS | Clinical Summary ---
Author Organization [employer] Address [address] [place] [address] [address] [place] [address] Care Team Providers Care Bingo Floater Name Role Phone Nancie Gonzales MD Primary Care Provider [phone] Allergies Active Allergy Reactions Criticality Noted Date Comments Penicillin G 03/05/2017 Medications fluticasone (Flonase) 50 MCG/ACT nasal sprayIndication s:Allergic rhinitis, unspecified seasonality, unspecified trigger INSTILL 1 SPRAY IN EACH NOSTRIL TWICE DAILY NEEDED FOR ALLERGIES. MAY DECREASE TO 1 SPRAY IN EACH NOSTRIL ONCE DAILY WHEN IMPROVED 48 g 1 04/05/20 23 Active cholecalciferol (Vitamin D High Potency) 25 MCG (1000 UT) capsuleIndicati ons:Vitamin D deficiency Take 1 capsule (25 mcg) by mouth in the morning. 90 capsule 1 06/27/20 23 Active loratadine (Claritin) 10 MG tabletIndicatio ns:Allergic rhinitis, unspecified seasonality, unspecified trigger TAKE 1 TABLET BY MOUTH EVERY DAY FOR FOR ALLERGIES 90 tablet 12/24/19 25 Active Ventolin HFA 108 (90 Base) MCG/ACT inhalerIndicati ons:Mild persistent asthma without complication INHALE 2 PUFFS BY MOUTH EVERY 4 HOURS NEEDED 18 g 1 12/31/19 25 Active atorvastatin (Lipitor) 40 MG tabletIndicatio ns:Dyslipidemia TAKE 1 TABLET BY MOUTH EVERY DAY 90 tablet 3 03/12/20 25 Active escitalopram (Lexapro) 10 MG tabletIndicatio ns:Depressive disorder Take 10 mg by mouth Once per day. Active traZODone (Desyrel) 50 MG tabletIndicatio ns:Depressive disorder Take 50 mg by mouth at bedtime. Active clonazePAM (KlonoPIN) 0.5 MG tabletIndicatio ns:Generalized anxiety disorder Take 0.5 mg by mouth 2 times daily. Active Vit-Fe Fumarate-FA ( Vitamins) 28-0.8 MG tabletIndicatio ns:Family Planning Take 1 tablet by mouth Once per day. 90 tablet 3 04/22/20 25 026 Active clonazePAM (KlonoPIN) 0.5 MG tabletIndicatio ns:Generalized anxiety disorder Take 1 tablet (0.5 mg) by mouth if needed each day for anxiety. 30 tablet 1 08/08/19 25 025 Discontinued(Me d list cleanup (will not trigger notification to Pharmacy)) traZODone (Desyrel) 50 MG tabletIndicatio ns:Moderate episode of recurrent major depressive disorder (CMS/HCC) (HCC) Take 1 tablet (50 mg) by mouth at bedtime. 90 tablet 1 08/08/19 25 025 Discontinued(Me d list cleanup (will not trigger notification to Pharmacy)) escitalopram (Lexapro) 10 MG tabletIndicatio ns:Moderate episode of recurrent major depressive disorder (CMS/HCC) (HCC) Take 1 tablet (10 mg) by mouth Once per day. 90 tablet 3 08/08/19 25 025 Discontinued(Me d list cleanup (will not trigger notification to Pharmacy)) levonorgestrel (Plan B) 1.5 MG tabletIndicatio ns:Family planning Take 0.5 tablets (0.75 mg) by mouth every 12 (twelve) hours for 1 day. 1 tablet 04/22/20 25 025 Active Problems Problem Noted Date Diagnosed Date ptsd 04/28/2024 Generalized anxiety disorder 04/28/2024 Overview (08/08/2024): Followed by Génesis Pichardo, therapist [facility]. Currently on Clonazepam 05 mg once a day PRN for anxiety. She also takes Trazodone 50 mg at night and Lexapro 10 mg once, daily. Not taking Sertraline any longer 08/08/24 Assessment & Plan (04/22/2025 2:37 PM EDT): Pt first presented with symptoms of dizziness and syncope 04/2022. She reproted they started arund the time she became homeless. -She saw Dr. Harris 07/2022 and echo (nromal 09/2022), exercise stress test (normal 08/15/22), carotid ultrasound (normal 08/11/2022) and tilt table (per pt fainted on tilt table) ordered. -She saw [facility] on 06/27/2022 -Seen in ER 09/2022 for chest pain, dx costochondritis -Seen by cardiology Dr. Harris and dx with vasovagal syncope given findings of studies. She was advised to use compression stocking and increase water and salt intake. -EEG 09/14/24 IMPRESSION: Abnormal EEG suggestive of underlying tendency for partial or complex partial seizure disorder. -referral to neurology placed 09/17/24 -patient is schedule for a telehealth visit on 01/20/25 at 11:[address] Murdock -20 hour digitally recorded EEG awake, drowsy and asleep was within normal limits. No epileptiform activity, seizures or persistent focal asymmetries occurred. -discussed vasovagal likely in setting of stressors Assessment & Plan (08/08/2024 11:12 AM EST): Followed by Génesis Pichardo, therapist [facility]. Currently on Clonazepam 05 mg once a day PRN for anxiety. She also takes Trazodone 50 mg at night and Lexapro 10 mg once, daily. Not taking Sertraline any longer 08/08/24 Mild intermittent asthma 04/28/2024 Overview (08/08/2024): Well controlled. No medications at this time. Assessment & Plan (04/22/2025 2:37 PM EDT): Assessment & Plan (08/08/2024 11:15 AM EST): Well controlled. No medications at this time. Assessment & Plan (04/28/2024 8:45 PM EDT): Well controlled on albuterol inhaler PRN Counseling and coordination of care 11/19/2023 Overview (11/19/2023): Person Centered Treatment Plan done by [facility] a fci services and supports care provider that works with [facility] to coordinate care to [facility] members with complex needs on 11/08/23. Plan includes support for housing applications, food resources, transportation, dental scheduling Other specified health status 06/26/2023 Overview (04/22/2025): -next physical exam due after 12/24/2025 -eye care facilitated by [facility] -dental home is [facility] -health care proxy given 04/28/24, pt not sure who she is going to put down Assessment & Plan (04/22/2025 2:37 PM EDT): -next physical exam due after 12/24/2025 -eye care facilitated by [facility] -dental home is [facility] -health care proxy given 04/28/24, pt not sure who she is going to put down Assessment & Plan (04/28/2024 8:44 PM EDT): -next physical exam due after 06/27/2024 -eye care facilitated by [facility] -dental home is [facility] -health care proxy given 04/28/24, pt not sure who she is going to put down Assessment & Plan (06/27/2023 10:48 AM EST): -next physical exam due after 06/27/2024 -eye care facilitated by [facility] -dental home is [facility] 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 She reproted they started arund the time she became homeless. -She saw Dr. Harris 07/2022 and echo (nromal 09/2022), exercise stress test (normal 08/15/22), carotid ultrasound (normal 08/11/2022) and tilt table (per pt fainted on tilt table) ordered. -She saw [facility] on 06/27/2022 -Seen in ER 09/2022 for chest pain, dx costochondritis -Seen by cardiology Dr. Harris and dx with vasovagal syncope given findings of studies. She was advised to use compression stocking and increase water and salt intake. -EEG 09/14/24 IMPRESSION: Abnormal EEG suggestive of underlying tendency for partial or complex partial seizure disorder. -referral to neurology placed 09/17/24 -patient is schedule for a telehealth visit on 01/20/25 at 11:[address] Murdock -20 hour digitally recorded EEG awake, drowsy and asleep was within normal limits. No epileptiform activity, seizures or persistent focal asymmetries occurred. -discussed vasovagal likely in setting of stressors Assessment & Plan (04/22/2025 2:37 PM EDT): Assessment & Plan (12/24/2024 2:51 PM EDT): Pt first presented with symptoms of dizziness and syncope 04/2022. She reproted they started arund the time she became homleless -She saw Dr. Harris 07/2022 and echo (nromal 09/2022), exercise stress test (normal 08/15/22), carotid ultrasound (normal 08/11/2022) and tilt table (per pt fainted on tilt table) ordered. -She saw [facility] on 06/27/2022 -Seen in ER 09/2022 for chest pain, dx costochondritis -Seen by cardiology Dr. Harris and dx with vasovagal syncope given findings of studies. She was advised to use compression stocking and increase water and salt intake. -EEG 09/14/24 IMPRESSION: -Abnormal EEG suggestive of underlying tendency for partial or complex partial seizure disorder. -referral to neurology placed 09/17/24 -patient is schedule for a telehealth visit on 01/20/25 at 11:[address] Murdock Assessment & Plan (09/17/2024 3:14 PM EST): Pt first presented with symptoms of dizziness and syncope 04/2022. She reproted they started arund the time she became homleless -She saw Dr. Harris 07/2022 and echo (nromal 09/2022), exercise stress test (normal 08/15/22), carotid ultrasound (normal 08/11/2022) and tilt table (per pt fainted on tilt table) ordered. -She saw [facility] on 06/27/2022 -Seen in ER 09/2022 for chest pain, dx costochondritis -Seen by cardiology Dr. Harris and dx with vasovagal syncope given findings of studies. She was advised to use compression stocking and increase water and salt intake. -EEG 09/14/24 IMPRESSION: Abnormal EEG suggestive of underlying tendency for partial or complex partial seizure disorder. -referral to neurology placed 09/17/24 Assessment & Plan (06/27/2023 10:49 AM EST): Pt first presented with symptoms of dizziness and syncope 04/2022> She reproted they started arund the time she became homl.ess. She saw Dr. Harris 07/2022 and echo (nromal 09/2022), exercise stress test (normal 08/15/22), carotid ultrasound (normal 08/11/2022) and tilt table (per pt fainted on tilt table) ordered. She saw [facility] on 06/27/2022 Seen in ER 09/2022 for chest pain, dx costochondritis Seen by cardiology Dr. Harris and dx with vasovagal syncope given findings of studies. She was advised to use compression stocking and increase water and salt intake. Refer to neurologist 06/27/2023 Pre-diabetes 08/01/2022 Overview (12/24/2024): Lab Results Component Value Date HGBA1C 5.6 02/19/2024 HGBA1C 5.7 (H) 05/03/2022 HGBA1C 5.5 03/13/2022 GLUCOSE 96 02/19/2024 Assessment & Plan (04/22/2025 2:37 PM EDT): Lab Results Component Value Date HGBA1C 5.6 02/19/2024 HGBA1C 5.7 (H) 05/03/2022 HGBA1C 5.5 03/13/2022 GLUCOSE 96 02/19/2024 Orders: Hemoglobin A1c; Future Assessment & Plan (12/24/2024 2:51 PM EDT): Lab Results Component Value Date HGBA1C 5.6 02/19/2024 HGBA1C 5.7 (H) 05/03/2022 HGBA1C 5.5 03/13/2022 GLUCOSE 96 02/19/2024 Assessment & Plan (06/27/2023 9:22 AM EST): -A1c 5.7% 04/2022 Vitamin D deficiency 08/01/2022 Overview (12/24/2024): Lab Results Component Value Date [id number] 32.7 02/19/2024 Assessment & Plan (04/22/2025 2:37 PM EDT): Orders: Vitamin D, 25-Hydroxy, Total, Immunoassay; Future Abnormal cervical Papanicolaou smear 03/03/2022 Overview (06/26/2023): Pap 02/2022 NILM, HPV negative. Assessment & Plan (06/27/2023 9:21 AM EST): Pap 02/2022 NILM, HPV negative. Mild persistent asthma 04/23/2017 Overview (04/22/2025): Well controlled. Assessment & Plan (04/22/2025 2:37 PM EDT): Well controlled. Allergic rhinitis 05/16/2012 Depressive disorder 05/16/2012 Overview (12/24/2024): Followed by Génesis Pichardo, therapist [facility]. Followed by psychiatry. Currently on Clonazepam 05 mg once a day PRN for anxiety. She also takes Trazodone 50 mg at night and Lexapro 10 mg once, daily. Not taking Sertraline any longer 08/08/24 Symptoms not controlled. No suicidial or homacidial ideation. Assessment & Plan (04/22/2025 2:37 PM EDT): Followed by tika Sales. Followed by psychiatry. Currently on Clonazepam 05 mg once a day PRN for anxiety. She also takes Trazodone 50 mg at night and Lexapro 10 mg once, daily. Not taking Sertraline any longer 08/08/24 Symptoms not controlled. No suicidial or homacidial ideation. Assessment & Plan (12/24/2024 2:57 PM EDT): Followed by tika Sales. Followed by psychiatry. Currently on Clonazepam 05 mg once a day PRN for anxiety. She also takes Trazodone 50 mg at night and Lexapro 10 mg once, daily. Not taking Sertraline any longer 08/08/24 Symptoms not controlled. No suicidial or homacidial ideation. Assessment & Plan (08/08/2024 11:11 AM EST): Followed by tika Sales. Currently on Clonazepam 05 mg once a day PRN for anxiety. She also takes Trazodone 50 mg at night and Lexapro 10 mg once, daily. Not taking Sertraline any longer 08/08/24 Assessment & Plan (04/28/2024 8:43 PM EDT): Followed by tika Sales. Currently on sertraline 50mg form PCP and other meds from psychiatry and will call to get meds all form the same provider 04/28/24 Dyslipidemia 05/16/2012 Overview (04/22/2025): Lab Results Component Value Date CHOL 228 (H) 04/25/2024 CHOL 257 (H) 02/19/2024 TRIG 93 04/25/2024 TRIG 87 02/19/2024 HDL 54 04/25/2024 HDL 48 02/19/2024 LDLCHOLCAL 156 (H) 04/25/2024 LDLCHOLCAL 192 (H) 02/19/2024 -continue lifestyle modification -atorvastatin 40mg started with much improvement -self discontinued atorvastatin, will check lipid panel and follow-up Assessment & Plan (04/22/2025 2:37 PM EDT): Lab Results Component Value Date CHOL 228 (H) 04/25/2024 CHOL 257 (H) 02/19/2024 TRIG 93 04/25/2024 TRIG 87 02/19/2024 HDL 54 04/25/2024 HDL 48 02/19/2024 LDLCHOLCAL 156 (H) 04/25/2024 LDLCHOLCAL 192 (H) 02/19/2024 -continue lifestyle modification -atorvastatin 40mg started with much improvement -self discontinued atorvastatin, will check lipid panel and follow-up Orders: Hepatic Function Panel; Future Lipid Panel, Standard; Future Basic Metabolic Panel; Future Assessment & Plan (12/24/2024 2:51 PM EDT): Lab Results Component Value Date CHOL 228 (H) 04/25/2024 CHOL 257 (H) 02/19/2024 TRIG 93 04/25/2024 TRIG 87 02/19/2024 HDL 54 04/25/2024 HDL 48 02/19/2024 LDLCHOLCAL 156 (H) 04/25/2024 LDLCHOLCAL 192 (H) 02/19/2024 -continue lifestyle modification -atorvastatin 40mg started with much improvement -self discontinued atorvastatin, will check lipid panel and follow-up . 08/08/24 Assessment & Plan (08/08/2024 11:12 AM EST): Lab Results Component Value Date CHOL 228 (H) 04/25/2024 CHOL 257 (H) 02/19/2024 TRIG 93 04/25/2024 TRIG 87 02/19/2024 HDL 54 04/25/2024 HDL 48 02/19/2024 LDLCHOLCAL 156 (H) 04/25/2024 LDLCHOLCAL 192 (H) 02/19/2024 -continue lifestyle modification -atorvastatin 40mg started with much improvement -self discontinued atorvastatin, will check lipid panel and follow-up . 08/08/24 Assessment & Plan (04/28/2024 8:43 PM EDT): Lab Results Component Value Date CHOL 228 (H) 04/25/2024 CHOL 257 (H) 02/19/2024 TRIG 93 04/25/2024 TRIG 87 02/19/2024 HDL 54 04/25/2024 HDL 48 02/19/2024 LDLCHOLCAL 156 (H) 04/25/2024 LDLCHOLCAL 192 (H) 02/19/2024 -continue lifestyle modification -atorvastatin 40mg started with much improment Assessment & Plan (06/27/2023 9:22 AM EST): No results found for: TRIG , CHOL , LDLCHOLCAL , HDL -continue lifestyle modifications Resolved Problems Problem Noted Date Diagnosed Date Resolved Date Altered consciousness 08/08/20242024 Overview (08/08/2024): Reports episodes of weakness, dizziness and altered consciousness. Reports feeling like she is having a seizure. No LOC, urinary or bowel incontinence or tongue injury from biting. -ordered EEG 08/08/24 -ordered additional labs to evaluate for metabolic, electrolyte and thyroid abnormalities. 08/08/24 Assessment & Plan (08/08/2024 11:10 AM EST): Reports episodes of weakness, dizziness and altered consciousness. Reports feeling like she is having a seizure. No LOC, urinary or bowel incontinence or tongue injury from biting. -ordered EEG 08/08/24 -ordered additional labs to evaluate for metabolic, electrolyte and thyroid abnormalities. 08/08/24 Altered mental status 08/08/20242024 Overview (08/08/2024): Reports episodes of weakness, dizziness and altered consciousness. Reports feeling like she is having a seizure. No LOC, urinary or bowel incontinence or tongue injury from biting. -ordered EEG 08/08/24 -ordered additional labs to evaluate for metabolic, electrolyte and thyroid abnormalities. 08/08/24 Assessment & Plan (08/08/2024 11:10 AM EST): Reports episodes of weakness, dizziness and altered consciousness. Reports feeling like she is having a seizure. No LOC, urinary or bowel incontinence or tongue injury from biting. -ordered EEG 08/08/24 -ordered additional labs to evaluate for metabolic, electrolyte and thyroid abnormalities. 08/08/24 Physical exam 06/27/2023 07/17/2024 Overview (06/27/2023): -Normal growth and development. -Anticipatory guidance discussed. -Preventative care / harm reduction discussed. Assessment & Plan (06/27/2023 10:24 AM EST): -Normal growth and development. -Anticipatory guidance discussed. -Preventative care / harm reduction discussed. Hx of syncope 08/01/2022 04/28/2024 Onychomycosis 10/25/2018 04/22/2025 Obesity 05/16/2012 04/22/2025 Encounters Date Type Department Care Team Description 04/30/2025 Telephone [facility] [address] [place] [id number] [address]/NG AND BV not perform 04/30/2025 Telephone [facility] [address] [place] [id number] Nancie Gonzales MD Care Coordination 04/29/2025 4:00 PM EDT Office Visit [facility] [address] [address] Guille Carter MD Vaginal discharge (Primary Dx); Vaginal itching 04/29/2025 Travel 04/22/2025 2:00 PM EDT Office Visit [address] [address] Nancie Gonzales MD Dyslipidemia (Primary Dx); Mild persistent asthma without complication; Syncope, unspecified syncope type; Family planning; Pre-diabetes; Depressive disorder; Generalized anxiety disorder; Mild intermittent asthma, unspecified whether complicated; Vitamin D deficiency; Other specified health status 04/22/2025 Travel 04/15/2025 Patient Outreach [facility] [address] [place] [id number] Nancie Gonzales MD Pre-visit Planning (SDOH screening completed on 12/24/2024) 03/12/2025 Refill [facility] [address] [place] [address] Nancie Gonzales MD Dyslipidemia 02/04/2025 Telephone [facility] [place] [address] Nancie Gonzales MD April02/02/2025 Results Follow-Up [facility] [place] [address] Nancie Gonzales MD US Pelvis Transvaginal from Last 3 Months Immunizations Immunization Administration Dates Next Due Hep B, adult 12/24/2024,04/28/2024,06/27/2023 Influenza injectable quadriv alent preservative free 06/27/2023,10/03/2018 Influenza, Split (incl. antonina fied surface antigen) 04/23/2013 Pneumococcal Conjugate PCV 20 06/27/2023 Tdap 06/27/2023,11/26/2009 Varicella 11/26/2009 Social History Tobacco Use Types Packs/Day Years [...] not to disclose 2021 10:19 AM EDT Last Filed Vital Signs Vital Sign Reading [...] oz) 04/29/2025 3:54 P M EDT Height 175.3 cm (5' 9 ) 04/22/2025 2:07 PM EDT Body Mass Index 26.08 04/22/2025 2:07 PM EDT Plan of Treatment Health Maintenance Due Date Last Done Comments Family Planning (PISQ) 2001 HPV Vaccines (1 - 3-dose series) 2001 Influenza Vaccine (#1) 2025 , 10/03/2018, 04/23/2013 Depression Monitoring 06/25/2025 12/24/2024, 025 Disability Screening 12/24/2025 12/24/2024 SDOH Screening 12/24/2025 12/24/2024 Alcohol/Substance Use Screening 04/22/2026 04/22/2025 COVID-19 Vaccine ( season) 2026 Postponed from 03/23/2025 (Patient Refused) Diabetes: Hemoglobin A1C 04/29/2026 025, 02/19/2024, 05/03/2022, Additional history exists Tobacco Screening 04/29/2026 04/29/2025 Cervical Cancer Screening 03/13/2027 HPV/Cotest 03/13/2027 03/13/2022, 02/21, 03/13/2022 Pap Smear 03/13/2027 03/13/2022, 03/13/2022 DTaP/Tdap/Td Vaccines (3 - Td or Tdap) 06/27/2033 06/27/2023, 11/26/2009 Zoster Vaccines (1 of 2) 2036 RSV Patients and Patients Aged 60 years or older (1 - 1-dose 75+ series) 2061 Pneumococcal Vaccine: Pediatrics (0 to 5 Years) and At-Risk Patients (6 to 49) Years Completed 06/27/2023 HIV Screening Completed 02/19/2024, 02/21, 01/04/2021 Hepatitis C Screening Completed 02/19/2024 , 03/13/2022, 01/04/2021 Hepatitis B Vaccines Completed 12/24/2024, 04/28/2024, 06/27/2023 HIB Vaccines Aged Out No longer eligi ble based on patient's age to complete this topic Hepatitis A Vaccines Aged Out No long er eligible based on patient's age to complete this topic IPV Vaccines Aged Out No longer eligi ble based on patient's age to complete this topic Meningococcal B Vaccine Aged Out No l onger eligible based on patient's age to complete this topic Meningococcal Vaccine Aged Out No mayco vickie eligible based on patient's age to complete this topic RSV under 20 months Aged Out No longe r eligible based on patient's age to complete this topic Rotavirus Vaccines Aged Out No longer eligible based on patient's age to complete this topic Procedures Procedure Name Priority Date/Time Associated Diagnosis Comments POCT URINALYSIS DIPSTICK Routine 04/29/2025 4:15 PM EDT Vaginal itching VITAMIN D,25-OH,TOTAL,IA Routine 04/29/2025 9:34 AM EDT Vitamin D deficiency BASIC METABOLIC PANEL Routine 04/29/2025 9:34 AM EDT Dyslipidemia HEMOGLOBIN A1C Routine 04/29/2025 9:34 AM EDT Pre-diabetes LIPID PANEL, STANDARD Routine 04/29/2025 9:34 AM EDT Dyslipidemia HEPATIC FUNCTION PANEL Routine 04/29/2025 9:34 AM EDT Dyslipidemia TSH W/REFLEX TO FT4 Routine 04/29/2025 9 :34 AM EDT Depressive disorder Generalized anxiety disorder CBC WITH AUTO DIFFERENTIAL Routine 04/29/2025 9:34 AM EDT Altered mental status, unspecified altered mental status type US PELVIS TRANSVAGINAL Routine 01/30/2025 2:29 PM EDT Abnormal menses Pelvic pain HEPATITIS C AB W/REFL TO HCV RNA, QN, PCR Routine 02/19/2024 11:25 AM EDT Routine screening for STI (sexually transmitted infection) HIV 1/2 ANTIGEN/ANTIBODY, FOURTH GENERATION W/RFL Routine 02/19/2024 11:25 AM EDT Routine screening for STI (sexually transmitted infection) HPV HIGH RISK PCR Routine 03/13/2022 THINPREP PAP AND HPV MRNA E6/E7 Routine 03/13/2022 12:00 AM EDT from Last 3 Months or Most Recently Relevant to Health Maintenance Results * (ABNORMAL) POCT urinalysis dipstick manually [...] CARE TEST ENTER/EDIT OR DERABLES Final Result * (ABNORMAL) Vitamin D, 25-Hydroxy, Total, Immunoassay (04/29/2025 9:34 AM EDT) Vitamin D 25-OH Total 19.4(L) >30 ng/mL [facility] Comment: Health Based Reference Values*< 20 ng/mL Ucxadatkk31-97 ng/mL Insufficient> 30 ng/mL Sufficient*Geremias PATTERSON. N Engl J Med. 2007;357:266-280There is no well-established upper level of normal vitamin Dlevels. Some laboratories use 50 ng/mL as an upper limit ofnormal. However, toxicity is patient-dependent and may occurat any level. Careful correlation with the patient'spresentation is necessary and, if there is concern forvitamin D toxicity, treatment should be consideredirrespective of the serum level.Care must be taken in interpreting Vitamin D results fromdifferent laboratories and methodologies. Published datademonstrated that results from patients undergoinghemodialysis may show a negative bias when tested withvarious automated 25-OH vitamin D assays when compared toLC-MS/MS.When testing samples from patients whose predominant form ofVitamin D is Vitamin D2, such as patients receiving VitaminD2 supplementation, results that are subtherapeutic shouldbe confirmed with another method such as LC-MS/MS. Blood Venous blood specimen / Unknown 04/29/2025 9:34 AM EDT 04/29/2025 11:24 AM EDT Nancie Gonzales MD LAB BLOOD ORDERABLES Final Result [facility] [address] [place] [phone] * TSH W/Reflex to FT4 (04/29/2025 9:34 AM EDT) TSH reflex Free T4 0.64 0.32 - 4.0 uIU/mL [facility] Blood Venous blood specimen / Unknown 04/29/2025 9:34 AM EDT 04/29/2025 11:24 AM EDT Nacnie Gonzales MD LAB BLOOD ORDERABLES Final Result [facility] [address] [place] [phone] * CBC auto differential (04/29/2025 9:34 AM EDT) White Blood Count 8.7 4.8 - 10.8 X10*3/uL [facility] Red Blood Count 4.63 4.20 - 5.50 X10*6/uL [facility] Hemoglobin 13.6 12.0 - 16.0 g/dl [facility] Hematocrit 40.7 37.0 - 47.0 % [facility] Mean Corpuscular Volume 87.9 80.0 - 98.0 fL [facility] Mean Corpuscular Hemoglobin 29.4 27.0 - 33.0 pg [facility] Mean Corpuscular HGB Conc 33.4 31.0 - 35.0 g/dl [facility] [facility] Red Cell Distribution Width 12.9 11.0 - 16.0 % [facility] Platelet Count 345 160 - 400 X10*3/uL [facility] Mean Platelet Volume 10.1 9.4 - 12.3 fL [facility] Neutrophils Percent Auto 59.2 45 - 73 % [facility] Imm Gran Pct Auto 0.2 0.0 - 0.4 % [facility] Lymphocytes Percent Auto 28.9 20 - 40 % [facility] Monocytes Percent Auto 7.1 2 - 11 % [facility] Eosinophils Percent Auto 4.0 0 - 4 % [facility] Basophils Percent Auto 0.6 0 - 2 % [facility] NRBC Pct Auto 0.0 0.0 - 0.2 /100WBC [facility] Neutrophils Absolute Auto 5.2 2.0 - 8.3 x10*3/uL [facility] Imm Gran Abs Auto 0.02 0.00 - 0.03 X10*3/uL [facility] Lymphocytes Absolute Auto 2.5 1.2 - 4.9 X10*3/uL [facility] Monocytes Absolute Auto 0.6 0.1 - 1.2 X10*3/uL [facility] Eosinophils Absolute Auto 0.4 0.0 - 0.4 X10*3/uL [facility] Basophils Absolute Auto 0.1 0.0 - 0.2 X10*3/uL [facility] NRBC Abs Auto 0.000 0.0 - 0.012 X10*3/uL [facility] Blood Venous blood specimen / Unknown 04/29/2025 9:34 AM EDT 04/29/2025 11:37 AM EDT Nancie Gonzales MD LAB BLOOD ORDERABLES Final Result [facility] [address] [place] [phone] * Hemoglobin A1c (04/29/2025 9:34 AM EDT) Hemoglobin A1c 5.7 <6.0 % [facility] Comment:Hemoglobin A1C Refer ence Range Adults: 4.8 - 6.0 % Non diabetic: < 6.0 % Goal: < 7.0 %Additional Action Suggested: > 8.0 %Note: Hemoglobin A1c results are invalid for patients with abnormal amounts of HbF. Blood transfusions may impact the HbA1c concentration in the patient sample. Estimated Average Glucose 117 mg/dL [facility] Comment:eAG = Estimated ave rage glucose which is %A1C expressed asaverage glucose, using the formula of the V2P-YuymwamTylabbo Glucose study (ADAG), Diabetes Care, Vol.31,#8,Feb. 2007 Blood Venous blood specimen / Unknown 04/29/2025 9:34 AM EDT 04/29/2025 11:37 AM EDT Nancie Gonzales MD LAB BLOOD ORDERABLES Final Result Performing Organization Address City/[facility]/ZIP Co de Phone Number [facility] [address] [place] [phone] Hepatic Function Panel (04/29/2025 9:34 AM EDT) Bilirubin, Total 0.3 0.0 - 1.0 mg/dL [facility] Bilirubin, Direct 0.1 0.0 - 0.5 mg/dL [facility] Aspartate Amino Transferase 17 5 - 31 U/L [facility] Alanine Aminotransferase 6 0 - 31 U/L [facility] Total Protein 6.7 6.5 - 8.0 g/dL [facility] Albumin Level 3.5 3.5 - 5.0 g/dL [facility] Alkaline Phosphatase 65 39 - 117 U/L [facility] Blood Venous blood specimen / Unknown 04/29/2025 9:34 AM EDT 04/29/2025 11:24 AM EDT Nancie Gonzales MD LAB BLOOD ORDERABLES Final Result Performing Organization Address City/[facility] Co de Phone Number [facility] [address] [place] [phone] * (ABNORMAL) Lipid Panel, Standard (04/29/2025 9:34 AM EDT) Triglycerides 59 <150 mg/dL [facility] Comment:Desirable Triglyceri de: less than 150 mg/dLBorderline High Triglyceride 150-199 mg/dLHigh Triglyceride: 200-499 mg/dLVery High Triglyceride: greater than or equal to 5OO mg/dL Cholesterol 224(H) <200 mg/dL [facility] Comment:Desirable Cholestero l: less than 200 mg/dLBorderline High Cholesterol: 200-239 mg/dLHigh Cholesterol: greater than 239 mg/dL LDL Cholesterol Calculated 156(H) <100 mg/dL [facility] Comment:Desirable LDL: less than 100 mg/dLNear Optimal/Above Optimal LDL: 110- 129 mg/dLBorderline High LDL: 130-159 mg/dLHigh LDL: 160-189 mg/dLVery High LDL: greater than or equal to 190 mg/dL HDL Cholesterol 57 >40 mg/dL [facility] Comment:Desirable HDL: great er than 40 mg/dL Note: This HDL assay may give artificially low results in patients with liver disease. Blood Venous blood specimen / Unknown 04/29/2025 9:34 AM EDT 04/29/2025 11:24 AM EDT Nancie Gonzales MD LAB BLOOD ORDERABLES Final Result Performing Organization Address City/[facility]/ZIP Co de Phone Number [facility] [address] [place] [phone] * (ABNORMAL) Basic Metabolic Panel (04/29/2025 9:34 AM EDT) Sodium 142 135 - 145 mmol/L [facility] Potassium 3.9 3.3 - 5.1 mmol/L [facility] Chloride 110(H) 96 - 108 mmol/L [facility] Carbon Dioxide 28 22 - 29 mmol/L [facility] Anion Gap 8(L) 12 - 20 [facility] Urea Nitrogen (BUN) 12 9 - 16 mg/dL [facility] Creatinine, Serum 0.87 0.5 - 1.4 mg/dL [facility] Estimated Glomerular Filt Rate >60 [facility] Comment:Chronic Kidney Disea se: Estimated GFR < 60 mL/min/1.38p5Imaufr Kidney Disease: Estimated GFR < 15 mL/min/1.73m2 Glucose 80 60 - 115 mg/dL [facility] Calcium 8.8 8.4 - 10.2 mg/dL [facility] Blood Venous blood specimen / Unknown 04/29/2025 9:34 AM EDT 04/29/2025 11:24 AM EDT Nancie Gonzales MD LAB BLOOD ORDERABLES Final Result [facility] [address] [place] [phone] * US Pelvis Transvaginal (01/30/2025 2:29 PM EDT) Anatomical Region Laterality Modality Pelvis Ultrasound 01/30/2025 2:29 PM EDT Narrative 01/30/2025 3:09 PM EDT [address] [address] Ultrasound Report Signed Patient: Nellie Carbone MR#: [id number] 220 : 1985 Acct:[id number] Age/Sex: 39 / F ADM Date: 01/30/25 Loc: HO.US Attending Dr: Nancie Gonzales MD Ordering Physician: Nancie Gonzales MD Date of Service: 01/30/25 Procedure(s): US pelvic and transvaginal Accession Number(s): [id number] cc: Nancie Gonzales MD EXAMINATION: US PELVIS CLINICAL INFORMATION: Aries pain. Abnormal masses. COMPARISON: October 13, 2008 TECHNIQUE: Real-time ultrasound of the pelvis using a curvilinear transducer and transabdominal approach with grayscale and color Doppler technique. FINDINGS: Uterus: The uterus is anteversion flexion and measures 7 x 3 x 5 cm. The double wall endometrial thickness is 5 mm. The uterus is smooth in contour and has normal myometrial echogenicity. No visible fibroid. Adnexa: Both ovaries are visualized. There is normal color flow to the adnexa. There is no ovarian torsion. There is no pelvic ascites or fluid collection. Right ovary measures 3 x 2 x 2 cm. Volume: 7 cc Left ovary measures 3 x 2 x 2 cm. Volume: 3 cc. US/US pelvic and transvaginal IMPRESSION: Normal transabdominal pelvic ultrasound. Electronically signed by: Bonilla Stokes MD 01/30/2025 03:06 PM EDT Dictated By: Bonilla Inman MD Signed By: <Electronically signed by Bonilla Lacey MD in OV> 01/30/25 1506 DD/ 28 TD/TT: 01/30/25 1440 [employer] Sales Consultant: Procedure Note Donotuseinterpreter, Image - 01/30/[address] [address] Ultrasound Report Signed Patient: Nellie CarboneMR#: [id number] 220 : 1985Acct:[id number] Age/Sex: 39 / FADM Date: 01/30/25 Loc: HO.US Attending Dr: Nancie Gonzales MD Ordering Physician: Nancie Gonzales MD Date of Service: 01/30/25 Procedure(s): US pelvic and transvaginal Accession Number(s): [id number] cc: Nancie Gonzales MD EXAMINATION: US PELVIS CLINICAL INFORMATION: Aries pain. Abnormal masses. COMPARISON: October 13, 2008 TECHNIQUE: Real-time ultrasound of the pelvis using a curvilinear transducer and transabdominal approach with grayscale and color Doppler technique. FINDINGS: Uterus: The uterus is anteversion flexion and measures 7 x 3 x 5 cm. The double wall endometrial thickness is 5 mm. The uterus is smooth in contour and has normal myometrial echogenicity. No visible fibroid. Adnexa: Both ovaries are visualized. There is normal color flow to the adnexa. There is no ovarian torsion. There is no pelvic ascites or fluid collection. Right ovary measures 3 x 2 x 2 cm. Volume: 7 cc Left ovary measures 3 x 2 x 2 cm. Volume: 3 cc. US/US pelvic and transvaginal IMPRESSION: Normal transabdominal pelvic ultrasound. Electronically signed by: Bonilla Stokes MD 01/30/2025 03:06 PM EDT Dictated By: Bonilla Inman MD Signed By: <Electronically signed by Bonilla Lacey MDin OV> 01/30/25 1506 DD/ 28 TD/TT: 01/30/25 1440 [employer] Sales Consultant: us Nancie Gonzales MD IMG US PROCEDURES Final Re sult * Hepatitis C Antibody with Reflex to HCV, RNA, Quantitative, Real-Time PCR (02/19/2024 11:25 AM EDT) Hepatitis C Antibody Nonreactive Nonreactive [facility] Comment:Antibodies to HCV no t detected; does not exclude early acuteHCV infection. Blood Venous blood specimen / Unknown 02/19/2024 11:25 AM EDT 02/19/2024 1:45 PM EDT Nancie Gonzales MD LAB BLOOD ORDERABLES Final Result Performing Organization Address [facility]/ZIP Co de Phone Number [facility] [address] [place] [phone] * HIV-1/2 Antigen and Antibodies, Fourth Generation, with Reflexes (02/19/2024 11:25 AM EDT) HIV AB/AG Nonreactive Nonreactive [facility] Comment:HIV-1 p24 Ag and/or HIV-1/HIV-2 Ab not detected.A test result that is nonreactive does not exclude thepossibility of exposure to or infection with HIV-1 and/orHIV-2. Nonreactive results in this assay for individualswith prior exposure to HIV-1 and/or HIV-2 may be due toantigen and antibody levels that are below the limit ofdetection of this assay.The [id number] HIV Ag/Ab Combo assay result andsupplemental assay results should be interpreted inconjunction with the patient's clinical presentation,history and other laboratory results. If the results areinconsistent with clinical evidence, additional testing issuggested to confirm the result. Blood Venous blood specimen / Unknown 02/19/2024 11:25 AM EDT 02/19/2024 1:45 PM EDT Nancie Gonzales MD LAB BLOOD ORDERABLES Final Result Performing Organization Address [facility]/ZIP Co de Phone Number [facility] [address] [place] [phone] * Thinprep PAP and HPV nRNA E6/E7 (03/13/2022 12:00 AM EDT) Nancie Gonzales MD LAB PATHOLOGY ORDERABLES F inal Result [facility] [address] [place] [phone] * HPV High Risk PCR (03/13/2022) Swab Cervical swab / Unknown 03/13/2022 Nancie Gonzales MD LAB MICROBIOLOGY - GENERAL ORDERABLES Final Result from Last 3 Months or Most Recently Relevant to Health Maintenance Insurance [employer] Care Teams Bingo Floater Relationship Specialty Start Date End Date Semora, MD Nancie [address] [place] [phone] PCP - General Family Medicine 07/23/18 Joon Liu LatcherBusiness Systems Advisor 11/15/23 Dr. Dos Santos Psychiatry 12/24/24 Dr. Murdock Neurology 12/24/24
[2025-05-01 12:35] LABS: Anion Gap 9 (12-20); Blood Urea Nitrogen 12 mg/dL (9-16); Calcium 9.0 mg/dL (8.4-10.2); Carbon Dioxide 28 mmol/L (22-29); Chloride 107 mmol/L (96-108); Cholesterol 200 mg/dL (<200); Estimated Glomerular Filt Rate > 60; HDL Cholesterol 57 mg/dL (>40); Potassium 4.7 mmol/L (3.3-5.1); Sodium 139 mmol/L (135-145); Triglycerides 69 mg/dL (<150)
[2025-05-02 02:44] LABS: Bacterial Vaginosis PCR POSITIVE (Negative); Candida Group PCR NOT DETECTED (Not Detect); Candida glab krusei PCR NOT DETECTED (Not Detect); Trichomonas vaginalis PCR NOT DETECTED (Not Detect)
[2025-05-02 08:24] LABS: HBS Num1 > 1000.00 mIU/mL (0-7.99); HBc Num1 0.10 S/CO (0.00-0.79); HBsAGNum1 0.46 S/CO (0.00-0.99); HIV Num 1 0.04 S/CO (0.00-0.99); Hepatitis B Surface Antigen Negative (Negative); ~HepC Num1 0.10 S/CO (0.00-0.79); ~Hepatitis B Surface Antibody REACTIVE (Nonreactive); ~Hepatitis C Antibody Nonreactive (Nonreactive)
== END 2025-05-01 08:37 | disposition home or self-care (01) ==
LOC: HO.HHCL 08:36
PROVIDERS: PCP Family Medicine; Referring Provider Emergency Medicine; Visit Provider Family Medicine
DX: N89.8 Other specified noninflammatory disorders of vagina (principal); E78.5 Hyperlipidemia, unspecified; R41.82 Altered mental status, unspecified
CPT/HCPCS: 36415; 80048; 80061; 81515; 84443; 86592; 86704; 86706; 86803; 87340; 87389